=== PATIENT | male | born 1950 | race Caucasian/White ===

== ENCOUNTER 2020-10-28 02:27 | Outpatient (CLI) | payer MEDICARE, MEDICAID, SELFPAY ==
--- NOTE | 2020-10-28 | DI.MRI_ITS ---
Exam(s) MR BRAIN WO/W EXAM: MR BRAIN WO/W CLINICAL HISTORY: NON HOGDKINS LYMPHOMA,C85,99,? 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 Both noninfused and contrast i nfused sequences were performed. IV Contrast injected was 11 cc Dotarem. COMPARISON: There are no prior brain imaging studies available for comparison FINDINGS: CEREBRAL PARENCHYMA: No evidence of intracranial hemorrhage, mass effect nor shift of midline structu re. No extraaxial fluid collections. Ventricles are not enlarged nor shifted. There are 5 adjacent foci of signal abnormality in the inferior aspect of the right cerebellar hemisp here, consistent with prior non recent ischemic sequelae. No other significant cerebellar findings. No ring enhancing lesions in the cerebellum. No abnormal signal evident in the nilesh, midbrain, and thalami. There is mild periventricular signal abnormality. There is also very subtle signal abnorma lity in the splenium the corpus callosum, most evident on diffusion imaging. There is no prominent e nhancement at this level. In addition, there is an area of subcortical signal abnormality in the lef t frontal lobe measuring 2.4 cm AP by 1.2 cm wide the by 1.5 cm craniocaudal. There is no abnormal e nhancement peripheral no ring enhancing in this region and no abnormal signal evident at this locatio n on diffusion imaging. In addition, there is a high left parietal similar signal abnormality adjace nt to the midline, almost similar size, also non hemorrhagic, nonenhancing, and not exhibiting signif icant signal abnormality on diffusion imaging. There are no ring enhancing lesions in the brain. There is no abnormal meningeal enhancement. PITUITARY GLAND: No mass nor parasellar abnormality. No obvious abnormality in the cavernous sinuses. FLOW VOIDS: The expected flow void are noted. No evidence of obvious aneurysm nor obvious vascular ma lformation. PARANASAL SINUSES: The visualized paranasal sinuses appear unremarkable. ORBITS: No obvious abnormal findings. IMPRESSION: 1. There are foci of subcortical signal abnormality in the left frontal and parietal lobes as describ ed above which that are not typical for chronic white matter ischemic changes. There is also mild si gnal abnormality in the splenium of the corpus callosum. None of these areas exhibit abnormal enhanc ement following contrast injection are still somewhat suspect, given the history here. 2. There are no ring enhancing lesions in the brain evidence no abnormal meningeal enhancement, focal nor diffuse. 3. There is a ???string of pearls??? configuration of non recent appearing micro infarcts in the inf erior aspect of the right cerebellar hemisphere. The left cerebellar hemisphere appears unremarkable . DATA REPOSITORY:
[2020-10-28 13:47] LABS: CREATININE 0.8 mg/dL (0.70-1.30)
[2020-10-28] MEDS: Gadoterate meglumine 20 ML VIAL 11 ML IVP (14:02)
[2020-10-28] MEDS: Normal Saline Flush 10 ML SYR IVP (14:02)
[2020-10-28 16:24] LABS: ALT 17 U/L (16-63); AST 18 U/L (15-37); Albumin 3.5 g/dL (3.4-5.0); Alkaline Phosphatase 94 U/L (46-116); Anion Gap 4.6 mmol/L (3-11); BUN 8 mg/dL (7-18); Bilirubin, Total 0.2 mg/dL (0.2-1.0); CO2 32.4 mmol/L (21.0-32.0); Chloride 102 mmol/L (98-107); Glucose 103 mg/dL (74-106); Potassium 4.5 mmol/L (3.5-5.1); Sodium 139 mmol/L (136-145); Total Protein 7.6 g/dL (6.4-8.2)
== END 2020-10-28 02:47 ==
PROVIDERS: Visit Provider Internal Medicine
DX: C85.99 Non-Hodgkin lymphoma, unspecified, extranodal and solid organ sites (principal)
CPT/HCPCS: 70553; 80053; 82565

== ENCOUNTER 2021-01-05 01:08 | Outpatient (CLI) | payer MEDICARE, MEDICAID, SELFPAY ==
[2021-01-05] MEDS: Normal Saline Flush 10 ML SYR IVP (13:59)
[2021-01-05] MEDS: Gadoterate meglumine 20 ML VIAL 11 ML IVP (14:00)
--- NOTE | 2021-01-05 14:30 | DI.MRI_ITS ---
Exam(s) MR BRAIN WO/W EXAM: MR BRAIN WO/W CLINICAL HISTORY: LYMPHOMA,C85.89,F/U ABNL FINDING ON MRI,R90.89,SPLENIUM OF CORPUS CALLOSUM TECHNIQUE: Multiplanar multisequence MRI of the brain was performed. Both noninfused and contrast i nfused sequences were performed. IV Contrast injected was 11 cc Dotarem. COMPARISON: MR MR BRAIN WO/W from 10/28/2020 FINDINGS: CEREBRAL PARENCHYMA: Previously described multiple areas of white matter signal abnormality which exh ibit increased signal on FLAIR imaging are unchanged and again exhibit no evidence of hemorrhage, pro minent surrounding edema, nor enhancement following contrast injection. There are also no new additi onal such findings on today's MRI study. These areas again exhibits no evidence of restricted diffus ion on DWI sequence No new abnormal signal evident in the nilesh, midbrain, and thalami. The previously described string of pearls configuration area of prior ischemic sequelae in the inferi or right cerebellar hemisphere is also unchanged. There are no new ring enhancing lesions in the brain. There is no abnormal meningeal enhancement. PITUITARY GLAND: No mass nor parasellar abnormality. No obvious abnormality in the cavernous sinuses. FLOW VOIDS: The expected flow void are noted. No evidence of obvious aneurysm nor obvious vascular ma lformation. PARANASAL SINUSES: The visualized paranasal sinuses appear unremarkable. ORBITS: No obvious abnormal findings. IMPRESSION: 1. Findings are unchanged from the prior abnormal findings on the MRI scan of 10/28/2020 2. No new ring-enhancing lesions in the brain and no evidence of abnormal meningeal enhancement 3. Also unchanged string of pearls configuration of non recent appearing micro infarcts in the infer ior aspect of the right cerebellar hemisphere. The opposite-left cerebellar hemisphere remains unrem arkable in appearance Essentially no change from the previous MRI study. DATA REPOSITORY:
== END 2021-01-05 01:28 ==
PROVIDERS: Visit Provider Internal Medicine
DX: R90.89 Other abnormal findings on diagnostic imaging of central nervous system (principal); C85.99 Non-Hodgkin lymphoma, unspecified, extranodal and solid organ sites
CPT/HCPCS: 70553

== ENCOUNTER 2021-05-12 01:56 | Outpatient (CLI) | payer MEDICARE, MEDICAID, SELFPAY ==
[2021-05-12 11:51] LABS: ALT 13 U/L (16-63); AST 16 U/L (15-37); Albumin 3.5 g/dL (3.4-5.0); Alkaline Phosphatase 98 U/L (46-116); Anion Gap 2.1 mmol/L (3-11); BUN 6 mg/dL (7-18); Bilirubin, Total 0.2 mg/dL (0.2-1.0); CO2 34.9 mmol/L (21.0-32.0); CREATININE 0.8 mg/dL (0.70-1.30); Calcium 8.7 mg/dL (8.5-10.1); Chloride 97 mmol/L (98-107); Glucose 85 mg/dL (74-106); Potassium 4.2 mmol/L (3.5-5.1); Sodium 134 mmol/L (136-145); Total Protein 7.6 g/dL (6.4-8.2)
[2021-05-12] MEDS: Gadoterate meglumine 20 ML VIAL 10 ML IVP (12:00)
[2021-05-12] MEDS: Normal Saline Flush 10 ML SYR IVP (12:00)
--- NOTE | 2021-05-12 12:15 | DI.MRI_ITS ---
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 CONTRAST MATERIAL: IV Contrast: 10 ML of Dotarem contrast administered. COMPARISON: MR MR BRAIN WO/W from 10/28/2020 MR MR BRAIN WO/W from 01/05/2021 FINDINGS: The examination is limited due to patient motion artifact. VENTRICLES AND EXTRA AXIAL SPACES: Normal in size and morphology for the patient's age. HEMORRHAGE: None. CEREBRAL PARENCHYMA: No findings to suggest an acute infarct. There again seen several areas of hype rintense signal on the FLAIR and T2 weighted images in the white matter. There has been increase in the abnormal signal in the splenium of the corpus callosum particularly on the left. There is also n ew increased signal seen in the left nilesh. Following contrast administration there is now enhancemen t seen in the left splenium of the corpus callosum. No other enhancing lesions are identified. The lucent areas seen in the left cerebellar hemisphere are unchanged. MIDLINE SHIFT: None. BRAINSTEM/CEREBELLUM: Increased signal on the T2 and FLAIR images in the left nilesh. This is new comp ared to the prior examination. CALVARIUM: Normal. ENHANCEMENT: As described above, there is enhancement now seen in the left aspect of the splenium the corpus callosum. VISUALIZED PARANASAL SINUSES/MASTOIDS: Clear. STANDING [place]: Normal flow void. PITUITARY GLAND: Unremarkable. OTHER FINDINGS: IMPRESSION: 1. New hyperintense signal seen in the left nilesh and increased signal seen in the left aspect of the splenium of the corpus callosum. There is now enhancement of the lesion in the corpus callosum. Dif ferential considerations include DISHCLOTH FOLDER lymphoma, glioblastoma, infection or MS. Metastatic disease shou ld also be considered. 2. Stable findings in the left cerebellar hemisphere. DATA REPOSITORY:
== END 2021-05-12 02:16 ==
PROVIDERS: Nurse Practitioner Family; Visit Provider Internal Medicine
DX: C85.99 Non-Hodgkin lymphoma, unspecified, extranodal and solid organ sites (principal); R90.89 Other abnormal findings on diagnostic imaging of central nervous system; C83.30 Diffuse large B-cell lymphoma, unspecified site
CPT/HCPCS: 70553; 80053; 99281

== ENCOUNTER 2021-05-12 16:11 | Emergency (ER) | payer MEDICARE, MEDICAID, SELFPAY ==
[2021-05-12 16:15] VITALS: BP 139/76; PULSE 71; RESP 12; TEMP 36.6; O2SAT 92
--- NOTE | 2021-05-12 16:31 | ED.GENADUL_ITS ---
Discharge Plan Disposition Patient Disposition: HOME Condition: Stable Discharge Details Clinical Impression: Ecchymosis Primary Care Provider: Unknown,Unknown ED Provider: Orville Umaña Home Meds and New Rx's Prescriptions: No Action methadone [Methadone Intensol] 10 mg/mL Concentrate 110 mg PO DAILY 0RF omeprazole magnesium [Prilosec OTC] 20 mg Tablet,Delayed Release (Dr/Ec) 20 mg PO DAILY 0RF Discharge Instructions Instructions: Ecchymosis (ED) Additional Instructions: It appears as though you have some bruising around the IV site. No signs of infection or other rash. Cool and/or warm compresses every 2 hours for 20 mi nutes. Please watch for new or worsening symptoms and return to the ER for any concerns. Medical Decision Making 70-year-old gentleman noticed discoloration to his IV site from an MRI roughly 4-1/2 hours ago after taking the bandage off. He is otherwise asymptomatic. He contacted the MRI department who recommended coming to the ER for evaluation. He has ecchymosis but no petechiae like bruising. I believe this is likely secondary from the IV puncture site, pressure, and dressing. Patient is not anticoagulated. I do not believe that emergent laboratory values are necessary. Patient is comfortable with this plan and has no additional questions or concerns. Standard discharge and return precautions were provided. This documentation was generated using PaeDaeation system, please disregard any oddities of phrase or misspellings. HPI General Mode of arrival: ambulatory . Date/Time Provider Initiated Documentation: 05/12/21 16:23 . Limitations to Documentation: no limitations . Information obtained by: patient . HPI Narrative: This is a 70-year-old gentleman, presenting to the ER for evaluation of right arm bruising. Patient states that he had an outpatient MRI today about 4-1/2 hours ago, had no issues at that time. Subsequently he took the bandage off around the puncture site for the IV and noticed some bruising. He states that he contacted MRI and they recommended coming to the ER. He denies any symptoms from the MRI or the contrast such as rash elsewhere in his body, difficulty alicia thing, wheezing, coughing, chest pain, shortness of breath. Patient states in general he typically bruises easily. He is not anticoagulated. Related Data Home Medications Medication Instructions Recorded Confirmed methadone 10 mg/mL oral 110 mg PO DAILY 05/12/21 05/12/21 concentrate (Methadone Intensol) omeprazole magnesium 20 mg 20 mg PO DAILY 05/12/21 05/12/21 tablet,delayed release (Prilosec OTC) Allergies Allergy/AdvReac Type Severity Reaction Status Date / Time Penicillins Allergy Unverified 05/12/21 16:22 General Stated Complaint: RashLesion ARELY: 5 Review of Systems Constitutional Constitutional: Denies fever(s) Cardiovascular Cardiovascular: Denies chest pain and Denies dyspnea Respiratory Respiratory: Denies dyspnea Integumentary/Breasts Skin/Breast: Denies erythema and Denies rash Hematologic/Lymphatic Hematologic/Lymphatic: Reports easy bleeding and Reports easy bruising PFS All Active Problems (Updated 05/12/21 @ 16:35 by ALLISON Chow) Ecchymosis (Acute) Social History Smoking/Tobacco Use Status: Current every day Tobacco Type: cigarettes Smoking risk assessment performed?: Yes Alcohol Intake: never Drug use: Never Substance use type: does not use Do you feel safe at home: Yes Do you feel safe in your relationship?: Yes Exam Const General: cooperative, healthy appearing, comfortable and no acute distress Orientation: alert and awake [facility] Head: normal to inspection, normocephalic and atraumatic Eyes Conjunctivae: conjunctivae normal Neck Neck: normal visual inspection, trachea midline and supple Resp Effort & Inspection: normal respiratory effort and able to speak in complete sentences Cardio Rate: regular rate Rhythm: regular rhythm Skin General skin exam: ecchymosis Rashes: no rashes Neuro General: patient alert, patient awake, moves all extremities and no focal motor deficits Cognition: normal cognition Speech: speech normal Gait: normal gait Sensory Exam: no sensory deficits noted Extrem General: full ROM and capillary refill normal Elbow/forearm/wrist images: 1. IV puncture site 2. There is an area of macular ecchymosis. There is no erythema, warmth, tenderness. The surrounding tissue is intact. Normal radial pulse and capillary refill Psych Appearance: grossly normal Mental Status: mental status grossly normal Course Vital Signs Vital signs: Vital Signs Temperature 36.6 C 05/12/21 16:15 Pulse 71 05/12/21 16:15 Respiratory Rate 12 05/12/21 16:15 Blood Pressure 139/76 05/12/21 16:15 Pulse Oximetry 92 05/12/21 16:15 Temperature 36.6 C 02/16/22 16:15 Temperature Source Temporal Artery Scan 05/12/21 16:15 Pulse 71 05/12/21 16:15 Respiratory Rate 12 05/12/21 16:15 Respiratory Effort Non-Labored 05/12/21 16:20 Blood Pressure 139/76 05/12/21 16:15 Blood Pressure Position Sitting 05/12/21 16:15 Pulse Oximetry 92 05/12/21 16:15 Oxygen Delivery Method Room Air 05/12/21 16:15 Oxygen Flow Rate 0 05/12/21 16:15 Pain Level 0 05/12/21 16:15
== END 2021-05-12 16:51 | disposition home or self-care (01) ==
PROVIDERS: Emergency Provider Physician Assistant
DX: R23.3 Spontaneous ecchymoses (principal)
CPT/HCPCS: 99281

== ENCOUNTER 2021-07-01 02:08 | Outpatient (CLI) | payer MEDICARE, MEDICAID, SELFPAY | END 2021-07-01 02:09 | disposition home or self-care (01) | LOC: LBO 02:09 | PROVIDERS: Visit Provider Internal Medicine Hematology & Oncology ==

== ENCOUNTER 2021-07-15 02:02 | Outpatient (RCR) | payer MEDICARE, MEDICAID, SELFPAY ==
[2021-07-15 09:32] LABS: Absolute Basophil Count 0.05 10^3/uL (0.0-0.2); Absolute Eosinophil Count 0.25 10^3/uL (0.0-0.7); Absolute Lymphocyte Count 2.14 10^3/uL (1.2-3.4); Basophils % 0.4; Eosinophils % 2.2; HCT 40.6 % (40.0-50.0); HGB 12.1 g/dL (13.5-17.5); Immature Grans % 0.9; Lymphocytes % 18.6; MCH 25.9 pg (27.0-33.0); MCHC 29.8 % (32.0-36.0); MCV 86.8 fL (80-95); MPV 10.6 fL (8.0-11.0); Neutrophils % 66.9; Platelet Count 406 10^3/uL (130-400); RBC 4.68 10^6/uL (4.36-5.78); RDW 18.1 % (11.8-14.1); RDW-SD 57.2 fL
[2021-07-15 09:36] LABS: Absolute Monocyte Count 1.27 10^3/uL (0.1-0.8); Absolute Neutrophil Count 7.69 10^3/uL (1.2-6.7)
[2021-07-15 09:47] LABS: ALT 20 U/L (16-63); AST 20 U/L (15-37); Albumin 3.2 g/dL (3.4-5.0); Alkaline Phosphatase 132 U/L (46-116); Anion Gap 3.5 mmol/L (3-11); BUN 9 mg/dL (7-18); Bilirubin, Total 0.2 mg/dL (0.2-1.0); CO2 34.5 mmol/L (21.0-32.0); CREATININE 0.8 mg/dL (0.70-1.30); Calcium 8.8 mg/dL (8.5-10.1); Chloride 100 mmol/L (98-107); Glucose 104 mg/dL (74-106); Potassium 4.4 mmol/L (3.5-5.1); Sodium 138 mmol/L (136-145); Total Protein 7.6 g/dL (6.4-8.2)
== END 2021-07-24 23:59 | disposition home or self-care (01) ==
LOC: INF 02:02
PROVIDERS: Visit Provider Internal Medicine Hematology & Oncology
DX: C85.89 Other specified types of non-Hodgkin lymphoma, extranodal and solid organ sites (principal)
CPT/HCPCS: 36415; 80053; 85025

== ENCOUNTER 2021-08-02 10:16 | Inpatient (IN) | payer MEDICARE, MEDICAID, SELFPAY ==
[2021-08-02] VITALS (102 sets, daily range): BP systolic 94–137; BP diastolic 41–76; PULSE 83–105; RESP 2–31; TEMP 34–36.8; O2SAT 88–100
--- NOTE | 2021-08-02 10:00 | DI.RAD_ITS ---
Exam(s) XR PORTABLE CHEST AP EXAM: XR PORTABLE CHEST AP CLINICAL HISTORY: trauma, hypoxia TECHNIQUE: 2D digital imaging was performed. COMPARISON: No exams were available for comparison FINDINGS: LUNGS: Severe underlying emphysematous changes. Superimposed right lower lobe infiltrate. No effusi on or pneumothorax. HEART: Normal. AORTA: Normal. BONES: Fractures right lateral 8th through 10th ribs. Eleventh and 12th ribs obscured. Soft tissues: Unremarkable. IMPRESSION: Fractures right 8th through 10th ribs. No pneumothorax. Right lower lobe infiltrate. DATA REPOSITORY: RADIATION DOSE DELIVERED:
--- NOTE | 2021-08-02 10:38 | ED.GENADUL_ITS ---
Discharge Plan Disposition Patient Disposition: [facility] INPATIENT Condition: Serious Discharge Details Clinical Impression: Pneumonia, Multiple rib fractures, Non-ST elevation AK (NSTEMI), Fall Admit Date/Time: 08/02/21 19:42 Admit Provider: Erich Middleton Attending Provider: Erich Middleton Primary Care Provider: Unknown,Unknown ED Provider: Orville Umaña Discharge Data Discharge Date/Time-TO BE ENTERED AT DEPARTURE: 08/02/21 21:11 Medical Decision Making <ALLISON Choudhary - Last Filed: 08/10/21 11:49> Patient is a pleasant 70-year-old gentleman presenting today with chief complaint of shortness of breath. Patient brought in via EMS. EMS reports that when they found patient at home, he was laying flat coming in due to a 68%. They are able to maintain the patient in the low 90s with nonrebreather facemask. Patient reports that he has been having increased shortness of breath since he fell on his deck yesterday. He states at that time he injured his back. Denies other injury at the time of the incident. Did not strike his head, no LOC or SARAVIA. Patient reports that he did vomit x1 this morning. He denies any aspiration. States that he was in an upright position at the time of emesis. Denies any cough. No fevers or chills. 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 He denies any nausea or vomiting associated with his current cancer treatment. Past medical history is pertinent for COPD. No prior CP. On exam, patient appears acutely ill. Clearly short of breath, accessory muscle usage, fragmented sentences. He sounds wet throughout very rhonchorous in all pyle. Patient is slightly tachycardic with heart rate of 104. Blood stable. Patient is on nonrebreather with oxygen maintained in the 90s. Abdomen is benign. No murmurs rubs or gallops appreciated. No lower extremity edema or calf discomfort. He has intact PT on the left which is diminished on the right. However, intact DP on the right which is diminished on the left. Intact capillary refill in all extremities. Patient does appear dry on exam. No evidence of head trauma. No midline tenderness with palpation. No pain with palpation or range of motion of the cervical spine. Neurologically intact moving all of his extremities. Patient does also appear chronically ill, is quite cachectic and malnourished appearing. Bedside chest x-ray was obtained immediately, reviewed by myself as well as Dr. Carlos with no pneumothorax, large effusion. Slight effusion in the right lower lobe. Patient was also evaluated by Dr. Carlos. Bedside fast exam was performed with no evidence of bleeding. Evaluation of the aorta was limited secondary to bowel gas. No acute wall motion abnormality noted on cardiac window, no pericardial effusion. Spoke with the patient's . She reports that his breathing has been declining since patient had chemotherapy last month. 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 Reports that he does have a history of COPD which has been progressively getting worse. States that he quit smoking within the last calendar year. After reports the patient has been suffering from an eating disorder recently. Initial ddx primarily concerned for underlying traumatic injury associated with yesterdays fall. However, given patietn comorbidities, alsoc concerned for potential PE, CHF exacerbation, cncer progression, ACS. Patient tolerating BiPAP well. Is receiving his second DuoNeb and is feeling much improved. Respiratory therapy reports that despite not hearing much wheezing initially, his lungs do seem to be clearing some with the help of BiPAP and nebulizers. VBG significant for pH of 7.27, PCO2 of 68, bicarb of 31. CO2 68%. Contacted by lab for white count 55. Concerned this may be associated with his cancer history, will evaluate see if patient has had Neupogen or other stimulant. EKG reviewed by Dr. Carlos. No ST elevation. Slight ST depression V4, V5. FINDINGS: LUNGS: Severe underlying emphysematous changes.? Superimposed right lower lobe infiltrate.? No effusion or pneumothorax. HEART: Normal. AORTA: Normal. BONES: Fractures right lateral 8th through 10th ribs.? Eleventh and 12th ribs obscured. Soft tissues: Unremarkable. IMPRESSION: Fractures right 8th through 10th ribs.? No pneumothorax.? Right lower lobe infiltrate. Patients troponin elevated at 290. Patient reports that prior to the fall today, he was not having any chest pain. Reports that he has some chronic shortness of breath associated with his COPD but no recent change in this or exertional change. I am primarily concerned at this time for demand ischemia associated with his injury yesterday plus the patient's chronic conditions. With the patient's history of vomiting, concern for potential aspiration pneumonia as source of the right lower lobe infiltrate We will begin the patient on metronidazole and levofloxacin, patient allergic to penicillin. We will also consult with anesthesia regarding rib block. Patient feeling much improved after rib block. He has been weaning off FiO2, is on high flow NC. Patient reports feeling much improved, is much more calm. Patient to repeat troponin continues to elevate at 466. I am concerned with the elevation for potential true ACS and will consult with cardiology at [facility]. This is where patient typically receives his oncology care at [facility]. COVID negative, now at bedside. Patient is now more forethcoming with history as he is much more calm. He now reports hx of AK with stent placement 12 years ago in [place]. CVA affecting RLE 8 years ago, treated in [place], [place]. He previously received treatment at [facility] in [place]. New to the area in the past year. Consulted with Dr. Caceres with cardiology. She recommended to continue trending the troponin, obtain an echocardiogram. Advised that at this time would not bring him to the [facility] at this time. Cardiology called back with milk collector. Trend troponin, echocardiogram. Try to obtain old for comparison. Recommended CT head, she wants to see if there is progression of his brain mets. concerned for ICH if we begin anticoagulation. At the end of my shift, care transitioned to Lg Umaña PA-C. Head CT for reevaluation of known masses prior to beginning anticoagulation is pending. Consultation with oncology pending. Patient currently diagnosed with right lower lobe infiltrate, concern for possible aspiration pneumonia which is being covered with metronidazole and levofloxacin. He has 3 rib fractures which have been blocked by anesthesia. He has an elevated troponin which is initially 290, now up to 466. Consulted with cardiology who was concerned regarding anticoagulation given the patient recent trauma as well as his known brain metastasis and causing potential bleed. Holding off on any formal anticoagulation until imaging has been obtained and oncology team has been consulted. Prior to leaving the department, spoke with Dr. Otto with oncology. She reviewed recent clinic visit notes. She feels the WBC is likely associated with acute stress of the trauma. She advised that his type of cancer does not typcially bleed. She recommended head CT first tonight. If that is non-acute, can move forward with anticoagulation as the risk of bleeding in this setting does not outweigh the risk of not anticoagulating the NSTEMI. I assumed care of this 70-year-old male from my colleague ALLISON Craig at approximately 1600. Please see her initial HPI and examination. At time of signout awaiting CT imaging of head and then need to reconnect with cardiology for recommendations and then likely admission. CT imaging does not reveal any evidence of intracranial abnormality, lesions are present. I spoke with cardiology at [facility], Dr. Stratton at 1800. He believes this is likely not a type I NSTEMI, recommend trending troponin, giving full dose aspirin but does not recommend initiating heparin. Does recommend echocardiogram tomorrow and if the patient was to develop symptoms or decompensate and can certainly treat as a type I NSTEMI at that time -Received a phone call from oncology, Dr. Otto. She wanted to update us, recommend the platelet count is greater than 50, and head CT is unremarkable then could certainly initiate heparin if cardiology recommended that. Head CT is negative and platelet count is above 50 however cardiology does not recommend starting heparin. Case then discussed with our hospitalist team, Dr. Middleton for admission. He pe rsonally evaluated the patient in room 1 and wrote admitting orders. <ALLISON Chow - Last Filed: 08/02/21 20:47> Patient is a pleasant 70-year-old gentleman presenting today with chief complaint of shortness of breath. Patient brought in via EMS. EMS reports that when they found patient at home, he was laying flat coming in due to a 68%. They are able to maintain the patient in the low 90s with nonrebreather facemask. Patient reports that he has been having increased shortness of breath since he fell on his deck yesterday. He states at that time he injured his back. Denies other injury at the time of the incident. Did not strike his head, no LOC or SARAVIA. Patient reports that he did vomit x1 this morning. He denies any aspiration. States that he was in an upright position at the time of emesis. Denies any cough. No fevers or chills. 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 He denies any nausea or vomiting associated with his current cancer treatment. Past medical history is pertinent for COPD. No prior CP. On exam, patient appears acutely ill. Clearly short of breath, accessory muscle usage, fragmented sentences. He sounds wet throughout very rhonchorous in all pyle. Patient is slightly tachycardic with heart rate of 104. Blood stable. Patient is on nonrebreather with oxygen maintained in the 90s. Abdomen is benign. No murmurs rubs or gallops appreciated. No lower extremity edema or calf discomfort. He has intact PT on the left which is diminished on the right. However, intact DP on the right which is diminished on the left. Intact capillary refill in all extremities. Patient does appear dry on exam. No evidence of head trauma. No midline tenderness with palpation. No pain with palpation or range of motion of the cervical spine. Neurologically intact moving all of his extremities. Patient does also appear chronically ill, is quite cachectic and malnourished appearing. Bedside chest x-ray was obtained immediately, reviewed by myself as well as Dr. Carlos with no pneumothorax, large effusion. Slight effusion in the right lower lobe. Patient was also evaluated by Dr. Carlos. Bedside fast exam was performed with no evidence of bleeding. Evaluation of the aorta was limited secondary to bowel gas. No acute wall motion abnormality noted on cardiac window, no pericardial effusion. Spoke with the patient's . She reports that his breathing has been declining since patient had chemotherapy last month. 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 Reports that he does have a history of COPD which has been progressively getting worse. States that he quit smoking within the last calendar year. After reports the patient has been suffering from an eating disorder recently. Patient tolerating BiPAP well. Is receiving his second DuoNeb and is feeling much improved. Respiratory therapy reports that despite not hearing much wheezing initially, his lungs do seem to be clearing some with the help of BiPAP and nebulizers. VBG significant for pH of 7.27, PCO2 of 68, bicarb of 31. CO2 68%. Contacted by lab for white count 55. Concerned this may be associated with his cancer history, will evaluate see if patient has had Neupogen or other stimulant. EKG reviewed by Dr. Carlos. No ST elevation. Slight ST depression V4, V5. FINDINGS: LUNGS: Severe underlying emphysematous changes.? Superimposed right lower lobe infiltrate.? No effusion or pneumothorax. HEART: Normal. AORTA: Normal. BONES: Fractures right lateral 8th through 10th ribs.? Eleventh and 12th ribs obscured. Soft tissues: Unremarkable. IMPRESSION: Fractures right 8th through 10th ribs.? No pneumothorax.? Right lower lobe infiltrate. Patients troponin elevated at 290. Patient reports that prior to the fall today, he was not having any chest pain. Reports that he has some chronic shortness of breath associated with his COPD but no recent change in this or exertional change. I am primarily concerned at this time for demand ischemia associated with his injury yesterday plus the patient's chronic conditions. With the patient's history of vomiting, concern for potential aspiration pneumonia as source of the right lower lobe infiltrate We will begin the patient on metronidazole and levofloxacin, patient allergic to penicillin. We will also consult with anesthesia regarding rib block. Patient feeling much improved after rib block. He has been weaning off FiO2, is on high flow NC. Patient reports feeling much improved, is much more calm. Patient to repeat troponin continues to elevate at 466. I am concerned with the elevation for potential true ACS and will consult with cardiology at [facility]. This is where patient typically receives his oncology care at [facility]. COVID negative, now at bedside. Patient is now more forethcoming with history as he is much more calm. He now reports hx of AK with stent placement 12 years ago in [place]. CVA affecting RLE 8 years ago, treated in [place], [place]. He previously received treatment at [facility] in [place]. New to the area in the past year. Consulted with Dr. Caceres with cardiology. She recommended to continue trending the troponin, obtain an echocardiogram. Advised that at this time would not bring him to the [facility] at this time. Cardiology called back with milk collector. Trend troponin, echocardiogram. Try to obtain old for comparison. Recommended CT head, she wants to see if there is progression of his brain mets. concerned for ICH if we begin anticoagulation. At the end of my shift, care transitioned to Lg Umaña PA-C. Head CT for reevaluation of known masses prior to beginning anticoagulation is pending. Consultation with oncology pending. Patient currently diagnosed with right lower lobe infiltrate, concern for possible aspiration pneumonia which is being covered with metronidazole and levofloxacin. He has 3 rib fractures which have been blocked by anesthesia. He has an elevated troponin which is initially 290, now up to 466. Consulted with cardiology who was concerned regarding anticoagulation given the patient recent trauma as well as his known brain metastasis and causing potential bleed. Holding off on any formal anticoagulation until imaging has been obtained and oncology team has been consulted. Prior to leaving the department, spoke with Dr. Otto with oncology. She reviewed recent clinic visit notes. She feels the WBC is likely associated with acute stress of the trauma. She advised that his type of cancer does not typcially bleed. She recommended head CT first tonight. If that is non-acute, can move forward with anticoagulation as the risk of bleeding in this setting does not outweigh the risk of not anticoagulating the NSTEMI. I assumed care of this 70-year-old male [facility]. Please see her initial HPI and examination. At time of signout awaiting CT imaging of head and then need to reconnect with cardiology for recommendations and then likely admission. CT imaging does not reveal any evidence of intracranial abnormality, lesions are present. I spoke with cardiology at [facility], Dr. Stratton at 1800. He believes this is likely not a type I NSTEMI, recommend trending troponin, giving full dose aspirin but does not recommend initiating heparin. Does recommend echocardiogram tomorrow and if the patient was to develop symptoms or decompensate and can certainly treat as a type I NSTEMI at that time -Received a phone call from oncology, Dr. Otto. She wanted to update us, recommend the platelet count is greater than 50, and head CT is unremarkable t hen could certainly initiate heparin if cardiology recommended that. Head CT is negative and platelet count is above 50 however cardiology does not recommend starting heparin. Case then discussed with our hospitalist team, Dr. Middleton for admission. He personally evaluated the patient in room 1 and wrote admitting orders. Medical Records Medical records reviewed: Yes I reviewed the patient's medical records. Imaging Data Radiologic Study: Attestation: I personally reviewed and interpreted this imaging study as follows: Imaging: CT Scan Radiologist's impression: PROCEDURE INFORMATION: Exam: CT Head Without Contrast Exam date and time: 08/02/2021 5:36 PM Age: 70 years old Clinical indication: Injury or trauma; Fall; Blunt trauma (contusions or hematomas); Consciousness not specified; Injury date: Today; Injury details: Comparison of masses known brain mass. TECHNIQUE: Imaging protocol: Computed tomography of the head without contrast. Radiation optimization: All CT scans at this facility use at least one of these dose optimization techniques: automated exposure control; mA and/or kV adjustment per patient size (includes targeted exams where dose is matched to clinical indication); or iterative reconstruction. COMPARISON: MR BRAIN WO/W 05/12/2021 11:33 AM FINDINGS: Brain: Low-attenuation lesions seen within the left frontal parietal lobe measuring approximately 16 mm in diameter unchanged compared to the MRI performed 05/12/2021. Additional low-attenuation lesions seen within the high left parietal lobe measuring 12.3 mm unchanged compared to the MRI pe rformed 05/12/2021. Low-attenuation lesions seen within the right cerebellum also appears unchanged and measures approximately 4.8 mm. No significant mass effect associated with these lesions . These lesions appear to lie within the white matter. There is moderate diffuse heterogeneity of the white matter attenuation, consistent with chronic white matter microangiopathic ischemic changes. There is moderate diffuse cerebral atrophy present. There is no evidence of intracranial hemorrhage. Cerebral ventricles: The ventricular system demonstrates mild to moderate diffuse compensatory enlargement. Paranasal sinuses: There is no evidence of fluid levels, mucoperiosteal thickening, or opacification to suggest acute or chronic sinusitis. Mastoid air cells: The mastoid aircells are normal.Orbital cavities: There is no evidence of retro- bulbar hemorrhage. There is no evidence of globe or lens injury. Vasculature: Vascular calcifications seen consistent with chronic atherosclerotic cerebrovascular disease. Bones/joints: The orbits are normal without evidence of fracture. The bony cranium shows no evidence of injury or other acute pathologic processes. Soft tissues: The extracranial soft tissues are normal. IMPRESSION: 1. No evidence of an acute intracranial abnormality. No significant change compared to MRI performed 05/12/2021 2. There is moderate age-related atrophy and chronic white matter ischemic changes, with compensatory ventricular dilation. 3. Low-attenuation lesions seen within the left frontal parietal lobe measuring approximately 16 mm in diameter unchanged compared to the MRI performed 05/12/2021. Additional low-attenuation lesions seen within the high left parietal lobe measuring 12.3 mm unchanged compared to the MRI performed 05/12/2021. 4. Low-attenuation lesions seen within the right cerebellum also appears unchanged and measures approximately 4.8 mm. 5. No significant mass effect associated with these lesions . These lesions appear to lie within the white matter. Lab Data Lab results reviewed: Yes I reviewed the patient's lab results. Labs: Laboratory Tests Range/Units 08/02/21 08/02/21 08/02/21 10:45 10:45 10:45 WBC (4.4-10.8) 10^3/uL 55.86 H* RBC (4.36-5.78) 10^6/uL 4.86 Hgb (13.5-17.5) g/dL 12.7 L Hct (40.0-50.0) % 41.7 MCV (80-95) fL 86 MCH (27.0-33.0) pg 26.1 L MCHC (32.0-36.0) % 30.5 L RDW (11.8-14.1) % 17.2 H Plt Count (130-400) 10^3/uL 415 H MPV (8.0-11.0) fL 11.2 H Immature Gran % 0.0 Neutrophils % 92.0 Band Neutrophils % 2 Lymphocytes % 2.0 Monocytes % 4.0 Eosinophils % 0.0 Basophils % 0.0 Nucleated RBC % (0.0-0.3) % 0.0 Absolute Neutrophils (1.2-6.7) 10^3/uL 52.51 H Absolute Lymphocytes (1.2-3.4) 10^3/uL 1.12 L Absolute Monocytes (0.1-0.8) 10^3/uL 2.23 H Absolute Eosinophils (0.0-0.7) 10^3/uL 0.00 Absolute Basophils (0.0-0.2) 10^3/uL 0.00 RBC Morphology Normal PT (9.3-11.0) sec INR (0.9-1.1) APTT (21.0-27.5) sec D-Dimer (<500) ng/mlFEU 3980 H VBG pH (7.31-7.41) VBG pCO2 (41-51) mmHg VBG pO2 mmHg VBG HCO3 (23-28) mmol/L VBG Total CO2 (24-29) mmol/L VBG O2 Saturation % VBG Base Excess (-2-3) mmol/L Sodium (136-145) mmol/L 137 Potassium (3.5-5.1) mmol/L 3.9 Chloride (98-107) mmol/L 98 Carbon Dioxide (21.0-32.0) mmol/L 30.4 Anion Gap (3-11) mmol/L 8.6 BUN (7-18) mg/dL 18 Creatinine (0.70-1.30) mg/dL 1.0 Estimated GFR/1.73 m2 (mL/min/1.73m2) >= 60.00 Glucose (74-106) mg/dL 168 H Calcium (8.5-10.1) mg/dL 9.0 Magnesium (1.8-2.4) mg/dL 2.0 Total Bilirubin (0.2-1.0) mg/dL 0.9 AST (15-37) U/L 23 ALT (16-63) U/L 19 Alkaline Phosphatase (46-116) U/L 87 Lactate Dehydrogenase (85-227) U/L Troponin I (<or=60) ng/L 290 H* NT-Pro-B Natriuret Pep (<300) pg/mL 1294 H Total Protein (6.4-8.2) g/dL 8.1 Albumin (3.4-5.0) g/dL 3.6 COVID-19 Source SARS-CoV-2 (PCR) (Negative) Influenza Type A (PCR) (Negative) Influenza Type B (PCR) (Negative) RSV (PCR) (Negative) Range/Units 08/02/21 08/02/21 08/02/21 10:45 10:45 11:07 WBC (4.4-10.8) 10^3/uL RBC (4.36-5.78) 10^6/uL Hgb (13.5-17.5) g/dL Hct (40.0-50.0) % MCV (80-95) fL MCH (27.0-33.0) pg MCHC (32.0-36.0) % RDW (11.8-14.1) % Plt Count (130-400) 10^3/uL MPV (8.0-11.0) fL Immature Gran % Neutrophils % Band Neutrophils % Lymphocytes % Monocytes % Eosinophils % Basophils % Nucleated RBC % (0.0-0.3) % Absolute Neutrophils (1.2-6.7) 10^3/uL Absolute Lymphocytes (1.2-3.4) 10^3/uL Absolute Monocytes (0.1-0.8) 10^3/uL Absolute Eosinophils (0.0-0.7) 10^3/uL Absolute Basophils (0.0-0.2) 10^3/uL RBC Morphology PT (9.3-11.0) sec 11.0 INR (0.9-1.1) 1.1 APTT (21.0-27.5) sec 25.3 D-Dimer (<500) ng/mlFEU VBG pH (7.31-7.41) 7.27 L VBG pCO2 (41-51) mmHg 68 H* VBG pO2 mmHg 36 VBG HCO3 (23-28) mmol/L 31 H VBG Total CO2 (24-29) mmol/L 29 VBG O2 Saturation % 58 VBG Base Excess (-2-3) mmol/L 4 H Sodium (136-145) mmol/L Potassium (3.5-5.1) mmol/L Chloride (98-107) mmol/L Carbon Dioxide (21.0-32.0) mmol/L Anion Gap (3-11) mmol/L BUN (7-18) mg/dL Creatinine (0.70-1.30) mg/dL Estimated GFR/1.73 m2 (mL/min/1.73m2) Glucose (74-106) mg/dL Calcium (8.5-10.1) mg/dL Magnesium (1.8-2.4) mg/dL Total Bilirubin (0.2-1.0) mg/dL AST (15-37) U/L ALT (16-63) U/L Alkaline Phosphatase (46-116) U/L Lactate Dehydrogenase (85-227) U/L Troponin I (<or=60) ng/L NT-Pro-B Natriuret Pep (<300) pg/mL Total Protein (6.4-8.2) g/dL Albumin (3.4-5.0) g/dL COVID-19 Source Not Applicable SARS-CoV-2 (PCR) (Negative) Negative Influenza Type A (PCR) (Negative) Negative Influenza Type B (PCR) (Negative) Negative RSV (PCR) (Negative) Negative Range/Units 08/02/21 08/02/21 08/02/21 13:30 13:30 18:22 WBC (4.4-10.8) 10^3/uL RBC (4.36-5.78) 10^6/uL Hgb (13.5-17.5) g/dL Hct (40.0-50.0) % MCV (80-95) fL MCH (27.0-33.0) pg MCHC (32.0-36.0) % RDW (11.8-14.1) % Plt Count (130-400) 10^3/uL MPV (8.0-11.0) fL Immature Gran % Neutrophils % Band Neutrophils % Lymphocytes % Monocytes % Eosinophils % Basophils % Nucleated RBC % (0.0-0.3) % Absolute Neutrophils (1.2-6.7) 10^3/uL Absolute Lymphocytes (1.2-3.4) 10^3/uL Absolute Monocytes (0.1-0.8) 10^3/uL Absolute Eosinophils (0.0-0.7) 10^3/uL Absolute Basophils (0.0-0.2) 10^3/uL RBC Morphology PT (9.3-11.0) sec INR (0.9-1.1) APTT (21.0-27.5) sec D-Dimer (<500) ng/mlFEU VBG pH (7.31-7.41) VBG pCO2 (41-51) mmHg VBG pO2 mmHg VBG HCO3 (23-28) mmol/L VBG Total CO2 (24-29) mmol/L VBG O2 Saturation % VBG Base Excess (-2-3) mmol/L Sodium (136-145) mmol/L Potassium (3.5-5.1) mmol/L Chloride (98-107) mmol/L Carbon Dioxide (21.0-32.0) mmol/L Anion Gap (3-11) mmol/L BUN (7-18) mg/dL Creatinine (0.70-1.30) mg/dL Estimated GFR/1.73 m2 (mL/min/1.73m2) Glucose (74-106) mg/dL Calcium (8.5-10.1) mg/dL Magnesium (1.8-2.4) mg/dL Total Bilirubin (0.2-1.0) mg/dL AST (15-37) U/L ALT (16-63) U/L Alkaline Phosphatase (46-116) U/L Lactate Dehydrogenase (85-227) U/L 167 Troponin I (<or=60) ng/L 466 H* 683 H* NT-Pro-B Natriuret Pep (<300) pg/mL Total Protein (6.4-8.2) g/dL Albumin (3.4-5.0) g/dL COVID-19 Source SARS-CoV-2 (PCR) (Negative) Influenza Type A (PCR) (Negative) Influenza Type B (PCR) (Negative) RSV (PCR) (Negative) Range/Units 08/02/21 08/02/21 20:37 22:44 WBC (4.4-10.8) 10^3/uL RBC (4.36-5.78) 10^6/uL Hgb (13.5-17.5) g/dL Hct (40.0-50.0) % MCV (80-95) fL MCH (27.0-33.0) pg MCHC (32.0-36.0) % RDW (11.8-14.1) % Plt Count (130-400) 10^3/uL MPV (8.0-11.0) fL Immature Gran % Neutrophils % Band Neutrophils % Lymphocytes % Monocytes % Eosinophils % Basophils % Nucleated RBC % (0.0-0.3) % Absolute Neutrophils (1.2-6.7) 10^3/uL Absolute Lymphocytes (1.2-3.4) 10^3/uL Absolute Monocytes (0.1-0.8) 10^3/uL Absolute Eosinophils (0.0-0.7) 10^3/uL Absolute Basophils (0.0-0.2) 10^3/uL RBC Morphology PT (9.3-11.0) sec INR (0.9-1.1) APTT (21.0-27.5) sec D-Dimer (<500) ng/mlFEU VBG pH (7.31-7.41) VBG pCO2 (41-51) mmHg VBG pO2 mmHg VBG HCO3 (23-28) mmol/L VBG Total CO2 (24-29) mmol/L VBG O2 Saturation % VBG Base Excess (-2-3) mmol/L Sodium (136-145) mmol/L Potassium (3.5-5.1) mmol/L Chloride (98-107) mmol/L Carbon Dioxide (21.0-32.0) mmol/L Anion Gap (3-11) mmol/L BUN (7-18) mg/dL Creatinine (0.70-1.30) mg/dL Estimated GFR/1.73 m2 (mL/min/1.73m2) Glucose (74-106) mg/dL Calcium (8.5-10.1) mg/dL Magnesium (1.8-2.4) mg/dL Total Bilirubin (0.2-1.0) mg/dL AST (15-37) U/L ALT (16-63) U/L Alkaline Phosphatase (46-116) U/L Lactate Dehydrogenase (85-227) U/L Troponin I (<or=60) ng/L Cancelled Cancelled NT-Pro-B Natriuret Pep (<300) pg/mL Total Protein (6.4-8.2) g/dL Albumin (3.4-5.0) g/dL COVID-19 Source SARS-CoV-2 (PCR) (Negative) Influenza Type A (PCR) (Negative) Influenza Type B (PCR) (Negative) RSV (PCR) (Negative) HPI <ALLISON Choudhary - Last Filed: 08/10/21 11:49> General Date/Time Provider Initiated Documentation: 08/02/21 10:35 . Limitations to Documentation: no limitations . Information obtained by: patient, family, EMS, RN notes reviewed and old records reviewed . History of Present Illness 70 year old M presents to the emergency department with the chief complaint of shortness of breath, described as severe, Quality is described as other (SOB, right sided chest pain after fall yesterday), Related Data Home Medications Medication Instructions Recorded Confirmed methadone 10 mg/mL oral 119 mg PO DAILY 05/12/21 08/07/21 concentrate (Methadone Intensol) omeprazole magnesium 20 mg 20 mg PO DAILY 05/12/21 08/02/21 tablet,delayed release (Prilosec OTC) albuterol sulfate 1.25 mg/3 mL 1.25 mg DAILY 08/02/21 08/02/21 solution for nebulization aspirin 81 mg tablet,delayed 81 mg DAILY 08/02/21 08/02/21 release fluticasone fur. 100 mcg-umeclid 1 inh inhalation DAILY 08/02/21 08/02/21 62.5 mcg-vilant 25 mcg inhalat.powder (Trelegy Ellipta) ipratropium bromide 0.02 % 3 ml DAILY 08/02/21 08/02/21 solution for inhalation nitroglycerin 0.3 mg sublingual 0.3 mg sublingual PRN PRN 08/02/21 08/02/21 tablet acetaminophen 500 mg tablet 1,000 mg PO TID #90 tabs 08/07/21 clindamycin HCl 150 mg capsule 450 mg PO TID #3 caps 08/07/21 gabapentin 100 mg capsule 300 mg PO TID #30 caps 08/07/21 lidocaine 5 % topical patch 1 patch topical DAILY #30 ea 08/07/21 oxycodone 5 mg tablet 5 mg PO Q4H PRN PRN #20 tabs 08/07/21 prednisone 20 mg tablet 40 mg PO DAILY #6 tabs 08/07/21 Previous Rx's Medication Instructions Recorded acetaminophen 500 mg tablet 1,000 mg PO TID #90 tabs 08/07/21 clindamycin HCl 150 mg capsule 450 mg PO TID #3 caps 08/07/21 gabapentin 100 mg capsule 300 mg PO TID #30 caps 08/07/21 lidocaine 5 % topical patch 1 patch topical DAILY #30 ea 08/07/21 oxycodone 5 mg tablet 5 mg PO Q4H PRN PRN #20 tabs 08/07/21 prednisone 20 mg tablet 40 mg PO DAILY #6 tabs 08/07/21 Allergies Allergy/AdvReac Type Severity Reaction Status Date / Time gadoterate meglumine Allergy Mild Skin Rash Verified 08/02/21 11:17 [From [facility]] Penicillins Allergy Unverified 08/02/21 11:17 General ARELY: 1 Review of Systems <ALLISON Choudhary - Last Filed: 08/10/21 11:49> Constitutional Constitutional: Reports as per HPI, Denies chills, Denies fever(s), Denies headache(s), Reports lethargy and Reports poor appetite (hx of eatting disorder, known cancer dx) Eyes Eyes: Denies change in vision ENT Ears, Nose, Mouth, and Throat: Denies dizziness and Denies headache(s) Cardiovascular Cardiovascular: Reports as per HPI, Reports chest pain (right sided, where he struck when he fell last night, none prior), Denies syncope, Denies leg edema, Reports dyspnea, Reports dyspnea on exertion and Reports orthopnea Respiratory Respiratory: Reports as per HPI, Reports cough, Denies hemoptysis, Reports pain on inspiration, Reports pain with cough, Reports dyspnea, Reports dyspnea on exertion and Denies wheezing Gastrointestinal Gastrointestinal: Reports as per HPI, Denies abdominal pain, Denies diarrhea, Reports nausea and Reports vomiting (x1 last night) Genitourinary Genitourinary: Denies system reviewed and no additional complaints, except as documented (denies change in urinary habits) Musculoskeletal Musculoskeletal: Reports as per HPI and Denies back pain Integumentary/Breasts Skin/Breast: Reports as per HPI and Denies rash Neurologic Neurologic: Reports as per HPI, Denies dizziness, Denies syncope and Denies headache(s) Allergic/Immunologic Allergic/Immunologic: Denies wheezing PFSH <ALLISON Choudhary - Last Filed: 08/10/21 11:49> All Active Problems (Updated 08/08/21 @ 00:03 by CARLOS NEWMAN) Brain metastases (Acute) COPD with respiratory distress, acute (Acute) Dysphagia (Acute) Palliative care patient (Acute) DNR (do not resuscitate) (Acute) Multiple rib fractures (Acute) Medical History Ocular lymphoma Social History Smoking/Tobacco Use Status: Current every day Tobacco Type: cigarettes Smoking risk assessment performed?: Yes Alcohol Intake: never Drug use: Never Substance use type: does not use Do you feel safe at home: Yes Do you feel safe in your relationship?: Yes Exam <ALLISON Choudhary - Last Filed: 08/10/21 11:49> Const General: cooperative, acute distress, in distress moderate and respiratory, anxious and frail appearing Nutritional Appearance: cachectic Orientation: alert, awake and oriented x3 HENMT Head: normal to inspection, no palpable skull fracture, normocephalic and atraumatic Ears: hearing grossly normal bilaterally Mouth: moist mucous membranes Eyes General: appearance normal, both eyes and all related structures Neck Neck: normal visual inspection, full ROM, trachea midline and no tracheal deviation Chest Chest: normal inspection of the chest, normal palpation of entire chest wall, no crepitus, localized rib tenderness with anteroposterior compression (right lateral chest wall) and no masses Resp Effort & Inspection: no audible wheezes, no cough, labored, nasal flaring, respiratory distress, retractions, tachypneic, no tracheal deviation, tripod positioning, uses accessory muscles and other (sounds audibly wet with inspiration) Auscultation: diminished lung sounds on the right, rhonchi and no wheezes Cardio Rate: tachycardic Rhythm: regular rhythm Heart Sounds: S1 normal and S2 normal GI Inspection: normal to inspection, no edema and non-distended Palpation: soft, no hepatosplenomegaly, not firm, no guarding, not rigid and nontender Auscultation: normal bowel sounds Back/Spine/Pelvis Back: no CVA tenderness Cervical Spine: normal cervical lordosis, No cervical spinal tenderness and No step off deformity Thoracic/Lumbar Spine: thoracic and lumbar spine normal to inspection, No thoracic spinal tenderness and No lumbar spinal tenderness Pelvis: no pain with anterior-posterior compression and no pain with lateral compression Skin General skin exam: no rashes or lesions noted Trauma: no lacerations or abrasions Neuro General: patient alert, patient awake and patient oriented x3 Cognition: normal cognition Speech: speech normal Gait: normal gait Extrem General: normal to inspection, capillary refill normal, no pedal edema, no calf tenderness and other (bilateral distal pulses, see MDM) Psych Appearance: grossly normal and well kempt Mental Status: mental status grossly normal Speech and Movement: speech and movement normal Sign Out <ALLISON Choudhary - Last Filed: 08/10/21 11:49> Sign Out Data: Sign Out Comment: Care transitioned to Orville Umaña PA-C, with imaging of head and consultation with oncology pending. Patient has NSTEMI, 3 rib fx, RLL infiltrate, known lymphoma. Last updated by Paula Craig PA at 08/02/21 17:12
--- NOTE | 2021-08-02 10:45 | DI.CT_ITS ---
Exam(s) CT CHEST PE ABD PELVIS W EXAM: CT CHEST PE ABD PELVIS W CLINICAL HISTORY: SOB, trauma, known lymphoma. TECHNIQUE: Imaging Protocol: Axial CT angiography was performed with multi-slice acquisition and mu lti-planar and/or 3D reconstructions. CONTRAST MATERIAL: Intravenous: Omnipaque 350 Contrast volume:100 ml COMPARISON: CR XR PORTABLE CHEST AP from 08/02/2021 FINDINGS: CHEST: Pulmonary Arteries: No evidence of filling defect to suggest pulmonary emboli. Tracheobronchial tree: Patent where visualized. Mediastinum and Jocelyn: Minimally prominent right hilar and subcarinal lymph nodes. Pulmonary parenchyma: Severe emphysematous changes greatest at the upper lobes. Dense area of consol idation in the right lower lobe. Mild patchy infiltrate at the left lung base. Bilateral pulmonary nodules, the largest in the right upper lobe measuring 2.2 by 3.2 cm. Pleura: No effusion or pneumothorax. Heart: The heart is not dilated. No coronary artery calcifications are seen. Aorta: Thoracic aorta non-dilated. Bones: Nondisplaced fractures lateral right 6th and 7th ribs. Displaced fractures of the right 8th a nd 9th ribs. ABDOMEN: Liver: Normal density. No measurable mass. Portal, Superior Mesenteric, and Splenic Veins: Unremarkable. Gallbladder and Biliary Tract: No radiodense calculus or dilation. Pancreas: Atrophic, no abnormal calcifications or inflammatory process. Spleen: Normal. Adrenals: No masses seen. Kidneys: Normal size, contour and axis. No radiodense stones or obstructive uropathy. No masses seen. Abdominal Aorta: Abdominal portion non-dilated. Atherosclerotic changes. Bowel: Large quantity of stool throughout the colon. No obstruction or bowel wall thickening. Append ix is unremarkable. Peritoneal Cavity: No ascites, collection or mesenteric inflammatory response. Lymph Nodes: Within normal limits. Bones: Unremarkable. Soft Tissues: Unremarkable. PELVIS: Bladder: Symmetric distention, no gross wall thickening. Reproductive Organs: Bilateral hydroceles, small. Prostate not enlarged. Lymph Nodes: Within normal limits. Bones: No fracture. IMPRESSION: 1. Right lower lobe pneumonia. Severe emphysematous changes. Bilateral pulmonary nodules. No evide nce of pulmonary embolism. 2. Right lateral rib fractures. No pneumothorax. No spine fractures. 3. Large quantity of fecal material. No acute abdominal or pelvic process. 4. Results of this exam have been verbally communicated with emergency department provider. RADIATION DOSE DELIVERED: 755.11mGy.cm Total DLP DATA REPOSITORY: All CT scans at this facility are submitted to the National Radiology Data Registry (NRDR) Dose Index Registry (DIR) with the [employer] ([employer]). RADIATION OPTIMIZATION: All CT scans at this facility use at least one of these dose optimization te chniques: automated exposure control; mA and/or kV adjustment per patient size (includes targeted exa ms where dose is matched to clinical indication); or iterative reconstruction.
[2021-08-02] MEDS: Albuterol/Ipratropium 3 ML UPD VIAL (10:49)
[2021-08-02 10:52] LABS: BE (Venous) 4 mmol/L (-2-3); HCO3 (Venous) 31 mmol/L (23-28); HCT 41.7 % (40.0-50.0); HGB 12.7 g/dL (13.5-17.5); MCH 26.1 pg (27.0-33.0); MCHC 30.5 % (32.0-36.0); MCV 86 fL (80-95); MPV 11.2 fL (8.0-11.0); O2 Sat (Venous) 58 %; Platelet Count 415 10^3/uL (130-400); RBC 4.86 10^6/uL (4.36-5.78); RDW 17.2 % (11.8-14.1); RDW-SD 53.8 fL; TCO2 (Venous) 29 mmol/L (24-29); pH (Venous) 7.27 (7.31-7.41); pO2 (Venous) 36 mmHg
[2021-08-02 10:57] LABS: pCO2 (Venous) 68 mmHg (41-51)
[2021-08-02] MEDS: Albuterol/Ipratropium 3 ML UPD VIAL UPD ×2 (10:57→22:16)
[2021-08-02 11:08] LABS: INR 1.1 (0.9-1.1); PTT Activated 25.3 sec (21.0-27.5)
[2021-08-02 11:10] LABS: Absolute Lymphocyte Count 1.12 10^3/uL (1.2-3.4); Absolute Monocyte Count 2.23 10^3/uL (0.1-0.8); Absolute Neutrophil Count 52.51 10^3/uL (1.2-6.7); Bands % 2; WBC 55.86 10^3/uL (4.4-10.8)
[2021-08-02 11:11] LABS: Diff Comment Manual Differential; RBC Morphology Normal
[2021-08-02 11:13] LABS: ALT 19 U/L (16-63); AST 23 U/L (15-37); Albumin 3.6 g/dL (3.4-5.0); Alkaline Phosphatase 87 U/L (46-116); Anion Gap 8.6 mmol/L (3-11); BUN 18 mg/dL (7-18); Bilirubin, Total 0.9 mg/dL (0.2-1.0); CO2 30.4 mmol/L (21.0-32.0); Chloride 98 mmol/L (98-107); Glucose 168 mg/dL (74-106); NT-proBNP 1294 pg/mL (<300); Potassium 3.9 mmol/L (3.5-5.1); Sodium 137 mmol/L (136-145); Total Protein 8.1 g/dL (6.4-8.2)
[2021-08-02 11:15] LABS: Troponin I 290 ng/L (<or=60)
--- NOTE | 2021-08-02 11:15 | RT.EKG_ITS ---
APPROVED REPORT Exam: Resting ECG Reason for Exam: SOB Patient Location: E HR:100 bpm ECG Measurements Heart Rate 100 AXIS WY 184 P 87 QRSd 96 QRS -57 QT 361 T 89 QTc 466 Conclusion Sinus tachycardia...rate> 99 Right atrial enlargement...P>0.25mV 2 lds or<-0.24mV aVR/aVL Left anterior fascicular block...axis(240,-40), init forces inf Anterior infarct, old...Q >40mS, abnormal ST-T, V2-V5 no STEMI, non-diagnostic EKG I have reviewed and interpreted ECG and agree with software generated interpretation.
[2021-08-02 11:30] LABS: D-Dimer 3980 ng/mlFEU (<500)
[2021-08-02] MEDS: fentaNYL 100 MCG/2 ML VIAL IVP ×3 (11:47→23:46)
[2021-08-02] MEDS: levoFLOXacin 750 MG/150 ML BAG 100 MG IVPB (12:01)
[2021-08-02] MEDS: metroNIDAZOLE 500 MG/100 ML BAG 100 MG IVPB ×2 (12:01→23:46)
[2021-08-02 12:06] LABS: COVID-19 PCR Negative (Negative); Influenza A PCR Negative (Negative); Influenza B PCR Negative (Negative); RSV PCR Negative (Negative)
[2021-08-02] MEDS: Omnipaque 350 MG/ML 50 ML BTL 100 ML IV (12:34)
--- NOTE | 2021-08-02 14:00 | RT.EKG_ITS ---
APPROVED REPORT Exam: Resting ECG Reason for Exam: elevated trop Patient Location: E HR:96 bpm ECG Measurements Heart Rate 96 AXIS WY 182 P 80 QRSd 102 QRS -54 QT 391 T 84 QTc 495 Conclusion Sinus rhythm...normal P axis, V-rate 60- 99 Left anterior fascicular block...axis(240,-40), init forces inf Anterior infarct, old...Q >40mS, abnormal ST-T, V2-V5 no STEMI, non-diagnostic EKG I have reviewed and interpreted ECG and agree with software generated interpretation.
[2021-08-02 14:02] LABS: Troponin I 466 ng/L (<or=60)
--- NOTE | 2021-08-02 14:16 | W.ANESNERVE ---
Nerve Block Single Injection Procedure Date and Time Date Performed: 08/02/21 Procedure Start: 14:10 Location Where Procedure Performed Procedure Location: Emergency Department Reason Performed: Acute Pain Management Pain Diagnosis: Rib Pain Requesting Provider: Paula Craig Timeout Performed Timeout Performed: Yes Monitoring Used ECG, Blood Pressure and SpO2 Sterility Sterility: Hand Hygiene, Surgical Cap, Surgical Mask, Sterile Gloves and Chlorhexidine Sedation Given During Procedure Sedation Given (Indicate Dose Given): No Sedation given Patient Mental Status Patient Mental Status: Awake Nerve Block 1st Nerve Block: Laterality: Right Block Type: Erector Spinae (Lower) Needle / Catheter Used: 100mm SonoPlex II Local Anesthetic Bolus (Indicate Dose Given): Lidocaine used for local infiltration of skin, Injected in 3-5ml increments after negative blood aspiration, Bupivacaine 0.25% Dose:: 20ml and Exparel Dose:: 10 ml Additives (Indicate Dose Given): None Ultrasound: Sterile probe cover and gel used Ultrasound Image Saved?: Yes Nerve Stimulator: Not Used Paresthesia: None Post Procedure Pain score (0-10): 1 Procedure Tolerated: No Complications and Patient tolerated well Procedure Outcome: Successful Performed By: Gil Landeros
[2021-08-02] MEDS: Omeprazole 20 MG CAPCR PO (14:35)
[2021-08-02] MEDS: Omeprazole 20 MG CAPCR (14:38)
--- NOTE | 2021-08-02 16:30 | DI.CT_ITS ---
Exam(s) CT HEAD WO EXAM: CT HEAD WO CLINICAL HISTORY: fall, comparison of masses. TECHNIQUE: Imaging Protocol: Axial computed tomography images with coronal and sagittal reformatted images were created and reviewed COMPARISON: MR MR BRAIN WO/W from 05/12/2021 CR XR PORTABLE CHEST AP from 08/02/2021 FINDINGS: Noninfused study. There are no skull fractures nor fluid in the visualized paranasal sinuses. There is no evidence of intracranial hemorrhage, intra or extra-axial. Ventricles are not enlarged o r shifted and there is no blood within the ventricular system nor within the basal cisterns. When compared to the April 2021 MRI the chronic findings in the right cerebellar hemisphere are un changed. Left frontal lobe findings appear relatively stable. Also stable appearance of findings in the left parietal lobe supra ventricular level. IMPRESSION: No acute intracranial findings on this noninfused CT scan of the brain. No evidence of intracranial hemorrhage (trauma history). Other known findings as seen on recent MRI are stable. RADIATION DOSE DELIVERED: 568 mGy.cm Total DLP DATA REPOSITORY: All CT scans at this facility are submitted to the National Radiology Data Registry (NRDR) Dose Index Registry (DIR) with the [employer] (ACR). RADIATION OPTIMIZATION: All CT scans at this facility use at least one of these dose optimization te chniques: automated exposure control; mA and/or kV adjustment per patient size (includes targeted exa ms where dose is matched to clinical indication); or iterative reconstruction.
[2021-08-02] MEDS: Ondansetron 4 MG/2 ML VIAL (17:32)
[2021-08-02 18:01] LABS: LDH 167 U/L (85-227)
[2021-08-02] MEDS: Aspirin 81 MG CHEW 324 MG CH (18:42)
[2021-08-02 18:49] LABS: Troponin I 683 ng/L (<or=60)
--- NOTE | 2021-08-02 18:58 | DI.VRAD_ITS ---
PROCEDURE INFORMATION: Exam: CT Head Without Contrast Exam date and time: 08/02/2021 5:36 PM Age: 70 years old Clinical indication: Injury or trauma; Fall; Blunt trauma (contusions or hematomas); Consciousness not specified; Injury date: Today; Injury details: Comparison of masses known brain mass. TECHNIQUE: Imaging protocol: Computed tomography of the head without contrast. Radiation optimization: All CT scans at this facility use at least one of these dose optimization techniques: automated exposure control; mA and/or kV adjustment per patient size (includes targeted exams where dose is matched to clinical indication); or iterative reconstruction. COMPARISON: MR BRAIN WO/W 05/12/2021 11:33 AM FINDINGS: Brain: Low-attenuation lesions seen within the left frontal parietal lobe measuring approximately 16 mm in diameter unchanged compared to the MRI performed 05/12/2021. Additional low-attenuation lesions seen within the high left parietal lobe measuring 12.3 mm unchanged compared to the MRI performed 05/12/2021. Low-attenuation lesions seen within the right cerebellum also appears unchanged and measures approximately 4.8 mm. No significant mass effect associated with these lesions . These lesions appear to lie within the white matter. There is moderate diffuse heterogeneity of the white matter attenuation, consistent with chronic white matter microangiopathic ischemic changes. There is moderate diffuse cerebral atrophy present. There is no evidence of intracranial hemorrhage. Cerebral ventricles: The ventricular system demonstrates mild to moderate diffuse compensatory enlargement. Paranasal sinuses: There is no evidence of fluid levels, mucoperiosteal thickening, or opacification to suggest acute or chronic sinusitis. Mastoid air cells: The mastoid aircells are normal. Orbital cavities: There is no evidence of retro-bulbar hemorrhage. There is no evidence of globe or lens injury. Vasculature: Vascular calcifications seen consistent with chronic atherosclerotic cerebrovascular disease. Bones/joints: The orbits are normal without evidence of fracture. The bony cranium shows no evidence of injury or other acute pathologic processes. Soft tissues: The extracranial soft tissues are normal. IMPRESSION: 1. No evidence of an acute intracranial abnormality. No significant change compared to MRI performed 05/12/2021 2. There is moderate age-related atrophy and chronic white matter ischemic changes, with compensatory ventricular dilation. 3. Low-attenuation lesions seen within the left frontal parietal lobe measuring approximately 16 mm in diameter unchanged compared to the MRI performed 05/12/2021. Additional low-attenuation lesions seen within the high left parietal lobe measuring 12.3 mm unchanged compared to the MRI performed 05/12/2021. 4. Low-attenuation lesions seen within the right cerebellum also appears unchanged and measures approximately 4.8 mm. 5. No significant mass effect associated with these lesions . These lesions appear to lie within the white matter. . Dictated and Authenticated by: Boyd Gutiérrez MD. Ordering:SRINIVAS Mitchell MD
--- NOTE | 2021-08-02 19:19 | HPE_ITS ---
Date of service: 08/02/21 Time of Service: 19:19 Assessment and Plan Assessment and plan (1) Pneumonia: Status: Acute Assessment and plan: Pneumonia, likely aspiration, with multifactorial hypoventilation due to pneumonia, rib fractures and underlying COPD. A reasonable antibiotic regimen, and simpler, might be Unasyn. For COPD will continue duonebs, and for the rib fractures prn analgesics. Will also use IS. The profound leukocytosis is most likely a leukemoid reaction, will trend out. The modest elevation in troponins is almost certainly from demand ischemia due to the periods of hypoxia. No suggestion here of ACS and no further treatment will be undertaken. Will recheck trop in AM. History of dysphagia is apparent, might benefit from swallowing study or ST consult Reviewed ADs, requests DNR/DNI. 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 Reports 1-=2 weeks of dry cough and worsening SOB, nofever or chills. One day MILL TENDER WASHING had mechanical fall landing on right side; no head injury or LOC. EMS summoned and report is of sats 68%, up to 90% on NRB mask. Here in ER findings of note for diffuse rhonchi, tenderness right chest; white count 55K wi th left shift; CXR RLL infiltrate; CT chest neg PE, with multifocal patchy pneumonitis; CT head negative save for known and stable brain lesions; trop 290/466/683; no acute changes EKG. VGB pH 7.27/ pCO2 68. Patient given Levaquin and Flagyl; ASA 325; duoneb x2; fentanyl and had rib block by anaesthesiology. States he feels better at present. I was asked to evaluate for admission. Patient notes he has been having poor appetite for some time. Also notes that he occasionally has dysphagia to solids and will cough when eating. Review of Systems Narrative: per HPI PFSH All Active Problems (Updated 08/02/21 @ 19:33 by Erich Middleton MD) Pneumonia (Acute) Social History Smoking/Tobacco Use Status: Current every day Tobacco Type: cigarettes Smoking risk assessment performed?: Yes Alcohol Intake: never Drug use: Never Substance use type: does not use Do you feel safe at home: Yes Do you feel safe in your relationship?: Yes Meds Allergies and Home Medications Allergies Allergy/AdvReac Type Severity Reaction Status Date / Time gadoterate meglumine Allergy Mild Skin Rash Verified 08/02/21 11:17 [From Dotarem] Penicillins Allergy Unverified 08/02/21 11:17 Home Medications Medication Instructions Recorded Confirmed Type methadone 10 mg/mL oral 110 mg PO DAILY 05/12/21 08/02/21 History concentrate (Methadone Intensol) omeprazole magnesium 20 mg 20 mg PO DAILY 05/12/21 08/02/21 History tablet,delayed release (Prilosec OTC) albuterol sulfate 1.25 mg/3 mL 1.25 mg DAILY 08/02/21 08/02/21 History solution for nebulization aspirin 81 mg tablet,delayed 81 mg DAILY 08/02/21 08/02/21 History release fluticasone fur. 100 mcg-umeclid 1 inh INHALATION DAILY 08/02/21 08/02/21 History 62.5 mcg-vilant 25 mcg inhalat.powder (Trelegy Ellipta) ipratropium bromide 0.02 % 3 ml DAILY 08/02/21 08/02/21 History solution for inhalation nitroglycerin 0.3 mg sublingual 0.3 mg SUBLINGUAL PRN PRN 08/02/21 08/02/21 History tablet Exam Narrative Exam Narrative: Cachectic. 110/53, 87, 36.8, 15, 88% hiflow NC (mouth breather, declines mask). HEENT atraumatic; neck supple; lungs coarse BS and diminished; heart distant but RRR; tender right lateral chest; abdomen soft and NT; extremities w/o edema; neuro Ox3, lucid, moves all 4s Results Labs Result diagrams: 08/02/21 10:45 08/02/21 10:45 Labs: Laboratory Results - last 24 hr 08/02/21 08/02/21 08/02/21 10:45 10:45 10:45 WBC 55.86 H* RBC 4.86 Hgb 12.7 L Hct 41.7 MCV 86 MCH 26.1 L MCHC 30.5 L RDW 17.2 H Plt Count 415 H MPV 11.2 H Immature Gran % 0.0 Neutrophils % 92.0 Band Neutrophils % 2 Lymphocytes % 2.0 Monocytes % 4.0 Eosinophils % 0.0 Basophils % 0.0 Nucleated RBC % 0.0 Absolute Neutrophils 52.51 H Absolute Lymphocytes 1.12 L Absolute Monocytes 2.23 H Absolute Eosinophils 0.00 Absolute Basophils 0.00 RBC Morphology Normal PT INR APTT D-Dimer 3980 H VBG pH VBG pCO2 VBG pO2 VBG HCO3 VBG Total CO2 VBG O2 Saturation VBG Base Excess Sodium 137 Potassium 3.9 Chloride 98 Carbon Dioxide 30.4 Anion Gap 8.6 BUN 18 Creatinine 1.0 Estimated GFR/1.73 m2 >= 60.00 Glucose 168 H Calcium 9.0 Magnesium 2.0 Total Bilirubin 0.9 AST 23 ALT 19 Alkaline Phosphatase 87 Lactate Dehydrogenase Troponin I 290 H* NT-Pro-B Natriuret Pep 1294 H Total Protein 8.1 Albumin 3.6 COVID-19 Source SARS-CoV-2 (PCR) Influenza Type A (PCR) Influenza Type B (PCR) RSV (PCR) 08/02/21 08/02/21 08/02/21 10:45 10:45 11:07 WBC RBC Hgb Hct MCV MCH MCHC RDW Plt Count MPV Immature Gran % Neutrophils % Band Neutrophils % Lymphocytes % Monocytes % Eosinophils % Basophils % Nucleated RBC % Absolute Neutrophils Absolute Lymphocytes Absolute Monocytes Absolute Eosinophils Absolute Basophils RBC Morphology PT 11.0 INR 1.1 APTT 25.3 D-Dimer VBG pH 7.27 L VBG pCO2 68 H* VBG pO2 36 VBG HCO3 31 H VBG Total CO2 29 VBG O2 Saturation 58 VBG Base Excess 4 H Sodium Potassium Chloride Carbon Dioxide Anion Gap BUN Creatinine Estimated GFR/1.73 m2 Glucose Calcium Magnesium Total Bilirubin AST ALT Alkaline Phosphatase Lactate Dehydrogenase Troponin I NT-Pro-B Natriuret Pep Total Protein Albumin COVID-19 Source Not Applicable SARS-CoV-2 (PCR) Negative Influenza Type A (PCR) Negative Influenza Type B (PCR) Negative RSV (PCR) Negative 08/02/21 08/02/21 08/02/21 13:30 13:30 18:22 WBC RBC Hgb Hct MCV MCH MCHC RDW Plt Count MPV Immature Gran % Neutrophils % Band Neutrophils % Lymphocytes % Monocytes % Eosinophils % Basophils % Nucleated RBC % Absolute Neutrophils Absolute Lymphocytes Absolute Monocytes Absolute Eosinophils Absolute Basophils RBC Morphology PT INR APTT D-Dimer VBG pH VBG pCO2 VBG pO2 VBG HCO3 VBG Total CO2 VBG O2 Saturation VBG Base Excess Sodium Potassium Chloride Carbon Dioxide Anion Gap BUN Creatinine Estimated GFR/1.73 m2 Glucose Calcium Magnesium Total Bilirubin AST ALT Alkaline Phosphatase Lactate Dehydrogenase 167 Troponin I 466 H* 683 H* NT-Pro-B Natriuret Pep Total Protein Albumin COVID-19 Source SARS-CoV-2 (PCR) Influenza Type A (PCR) Influenza Type B (PCR) RSV (PCR) Last Vital Signs Temp 36.8 C 08/02/21 10:33 Pulse 87 08/02/21 18:45 Resp 15 08/02/21 18:50 BP 110/53 L 08/02/21 18:45 Pulse Ox 88 L 08/02/21 18:50
[2021-08-02] MEDS: cefTRIAXone 1,000 MG in Normal Saline 50 ML 100 MG IVPB (22:16)
[2021-08-02] MEDS: Lactated Ringers 1,000 ML 75 ML IV (23:46)
[2021-08-02] MEDS: Normal Saline Flush 10 ML SYR IVP (23:46)
[2021-08-03] VITALS (10 sets, daily range): BP systolic 110–125; BP diastolic 50–66; PULSE 80–89; RESP 2–20; TEMP 31–36.6; O2SAT 90–95
[2021-08-03] MEDS: Albuterol/Ipratropium 3 ML UPD VIAL UPD ×3 (03:00→20:03)
[2021-08-03] MEDS: fentaNYL 100 MCG/2 ML VIAL IVP (05:52)
[2021-08-03] MEDS: metroNIDAZOLE 500 MG/100 ML BAG 100 MG IVPB ×3 (06:03→22:19)
[2021-08-03 06:34] LABS: HCT 37.5 % (40.0-50.0); HGB 11.1 g/dL (13.5-17.5); MCH 25.2 pg (27.0-33.0); MCHC 29.6 % (32.0-36.0); MCV 85 fL (80-95); MPV 11.5 fL (8.0-11.0); Platelet Count 278 10^3/uL (130-400); RDW 17.2 % (11.8-14.1); RDW-SD 53.6 fL
[2021-08-03 06:44] LABS: WBC 29.94 10^3/uL (4.4-10.8)
[2021-08-03 07:10] LABS: Troponin I 746 ng/L (<or=60)
[2021-08-03] MEDS: Omeprazole 20 MG CAPCR PO (09:12)
[2021-08-03] MEDS: Methadone Liquid 10 MG/ML 119 MG PO (09:12)
[2021-08-03] MEDS: Aspirin E.C. 81 MG TABEC PO (09:12)
--- NOTE | 2021-08-03 11:28 | W.SPSTE ---
Date of service: 08/03/21 Time of Service: 10:29 Subjective Consult received by Erich Middleton for Clinical Swallow Evaluation in setting of suspected aspiration pna and patient reported dysphagia symptoms. Upon initial chart review, planned to complete MBSS this date but patient had since been placed on high flow oxygenation (not mobile, and not sales representative electric service of baseline swallow function in order to provide appropriate swallow recommendations). Deferred for now, may be appropriate as respiratory status improves and rad schedule allows.. Patient was contacted at bedside this date, mildly reclined, agreeable to participate in clinical swallow evaluation. HOB was elevated for this session. Patient reports coughing with both liquids and solids at baseline. Endorses chronic GERD for which he has been medicated for many years. Endorses shortness of breath with meals as well as throughout day. He is on oxygen at home. He is edentulous and does not wear dentures because of poor fit. Mainly eats purees and very soft foods at home. Cleans out his mouth once every few days or so. Reports poor appetite, cites possible impact of chemotherapy. Has always been a picky eater. 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 Reports 1-=2 weeks of dry cough and worsening SOB, nofever or chills. 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 EMS summoned and report is of sats 68%, up to 90% on NRB mask. Here in ER findings of note for diffuse rhonchi, tenderness right chest; white count 55K with left shift; CXR RLL infiltrate; CT chest neg PE, with multifocal patchy pneumonitis; CT head negative save for known and stable brain lesions; trop 290/466/683; no acute changes EKG. VGB pH 7.27/ pCO2 68. Patient notes he has been having poor appetite for some time. Also notes that he occasionally has dysphagia to solids and will cough when eating. ?PFSH: Minimal documented, medical history is as reported above. Objective Objective Respiratory: High flow O2 at 40L 60% FiO2 Mental status: AAOx3 , able to recall recent events, demonstrates carryover of info/education within session. Speech: Largely WFL, mild imprecision ISO edentulousness. Language: WFL Predisposing dysphagia risk factors: COPD, GERD with oxygen supplementation. Clinical signs of possible chronic dysphagia: suspected aspiration PNA, malnutrition Precipitating dysphagia risk factors / triggering event: hypoxia ISO suspected PNA. Oral-Peripheral Exam: significant for: Edentulous. Has dentures but does not wear due to poor fit/pain. Oral mucosa: Mild dryness. Moderate salas/green buildup on tongue, able to largely resolve with extended oral care via suction sponges this date. Cough strength adequate and productive of salas/green sputum at baseline. Notable tongue weakness to resistance. Volitional swallow appears relatively timely and robust to palpation. Noting appearance of deconditioning/atrophy of facial muscles, patient is very emaciated. Food items tested: ?? [ ] None. Further swallow assessment not warranted at this time.? [X] Ice: [X] IDDSI 0: Via tsp (5cc), cup edge [ ] IDDSI 1: [X] IDDSI 2: Via cup edge [ ] IDDSI 3: [ ] IDDSI 4: Via tsp (5-10cc) [ ] IDDSI 5: [ ] IDDSI 6: [X] IDDSI 7: [ ] Pill/tablet: ? Oral phase: [X] WFL [ ] Leakage from mouth [ ] Difficulty with bolus manipulation [ ] Difficulty with a-p transport [ ] Difficulty chewing [ ] Pocketing [ ] Residue Pharyngeal phase: [ ] WFL [ ] Delayed swallow initiation [ ] Reduced hyolaryngeal elevation/excursion [x] Cough after swallow, though this is difficult to differentiate from baseline productive congested coughing this date. [ ] Voice change after swallow? [ ] Throat clearing? [ ] Endorsed stasis? Education Provided to patient & family & RN re: Normal vs disordered swallowing, impact of COPD, GERD, high flow oxygenation on swallow function, rationale for increased oral care, and rationale for recommended strategies, precautions, and diet consistency recommendations. Assessment Likely at least mild or moderate oral-pharyngeal dysphagia at baseline, complicated by continuous oxygen needs, shortness of breath and reduced coordination of breathing & swallowing in setting of COPD. Noting possible delayed s/sx aspiration this date but difficult to klystrom tube tester in setting of baseline congested breathing and cough productive of salas/green sputum. Noting tongue weakness on exam this date, suspect in setting of considerable deconditioning, though hyo-laryngeal elevation and excursion appear robust to palpation this date. Initiation appears timely. Oral care is infrequent at baseline. Patient should be assisted to complete oral care using in-line suction kits before and after any PO intake. Given high-flow oxygenation at this time and suspected aspiration PNA, recommend purees to minimize work of chewing/breathing during meals. Patient is agreeable. May trial upgraded textures with CARTON MAKING MACHINE OPERATOR only as respiratory status improves. Did not appreciate difference between thin and thickened liquids this date, but provided recommendation to control sip size to tsp size or less from cup edge which patient demonstrated successfully throughout session. Patient was receptive to safe swallowing recommendations as outlined below. Patient remains at significantly heightened risk of aspiration PNA in setting of chronic COPD requiring oxygen supplementation, GERD, and reduced immunocompetence. Risks may improve with increased mobility, improved respiratory function. He appears to be an excellent candidate for rehabilitation via strategy training given demonstrated carryover of recommendations reported by RN later this date. At the same time, if patient chooses a palliative/hospice direction for his care given brain metastases, he may benefit from education r/t palliative approaches to dysphagia management. Discharge recommendations: Pending inpatient progress and goals of care. Oral care training and education was a large focus of our session this date. Recommendations: DIET RECOMMENDATIONS: Solid: Level 4: Puree (once medically cleared). Liquid: Level 0: Thin liquids Medications: One at a time in tsp puree. For large pills, crush as able in tsp puree. Alter medications only as advised by MD/Pharmacy. ORAL CARE: Q4 and before & after PO intake For water only, oral care BEFORE intake is sufficient. Provide setup assist for suction oral kits. RISK MITIGATION: HOB upright as tolerated; upright for all PO intake. Encourage physical mobility as tolerated. ? Level of Assistance/Supervision: Distant/Intermittent supervision for all PO intake to ensure tolerance and maintenance of vitals during meals. PO intake only when awake/alert? ? Strategies/Adaptations/Assistive Equipment: Very small sips & bites. Slow rate of intake. Clear throat and re-swallow after sips of liquid. Reduce auditory and/or visual distractions when eating ? Posture/Positioning Needs: Maintain upright position at least 30 minutes after meals, Avoid meals/snacks 2-3 hours prior to reclining/sleeping, Sleep with head of bed elevated to reduce likelihood of nocturnal reflux Plan CARTON MAKING MACHINE OPERATOR to continue to follow while on unit to provide training and assess for safest/least restrictive diet. Short Term Goals: Patient/RN will report increased frequency of oral care to Q4 & before/after PO intake as recommended within one week. Further ST goals pending goals of care. ? Time spent: 60 minutes CARTON MAKING MACHINE OPERATOR CPT Code: 97342 Clinical Swallowing Evaluation Coding
--- NOTE | 2021-08-03 15:15 | CHAPLAIN ---
Robles was sitting up in bed, using a BiPap or CPap. He was pleasant and responded to some questions. I kept our conversation short as he was working hard to breathe. Robles was admitted yesterday with low oxygen rates and difficulty breathing. He was diagnosed with pneumonia and rib fractures (from a recent fall on his deck). I will continue to visit.
--- NOTE | 2021-08-03 15:32 | W.PM.PROGNOT ---
Date of Service Date of service: 08/03/21 Time of Service: 15:32 Assessment and Plan Assessment and plan (1) Acute respiratory failure with hypoxia and hypercapnia: Status: Acute Assessment and plan: Multifactorial - due to aspiration pneumonia, acute exacerbation of COPD, rib fx causing atelectasis and guarding due to pain. Continue treatment of aspiration pneumonia with ceftriaxone/flagyl. Encourage IS. Provide pain control. Add steroids. Wean O2 as tolerated. (2) Aspiration pneumonia: Status: Acute Assessment and plan: Present on admission. As above Evaluated by speech therapy - started on pureed diet with thin liquids. (3) Acute exacerbation of chronic obstructive pulmonary disease (COPD): Status: Acute Assessment and plan: As above Add prednisone to scheduled/prn nebs. Add symbicort (normally on trelegy at home). Not normally oxygen dependent. (4) Ocular lymphoma: Assessment and plan: Consulting palliative and hospice (5) Brain metastases: Assessment and plan: As above If we are able to get an MRI once his oxygen requiriment decreases, we will. (6) Elevated troponin: Status: Acute Assessment and plan: Suspect this is demand due to oxygen. Sometimes troponins become elevated with rhabdomyolysis as well - Check CPK. Not a candidate for intervention given brain metastases. 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 Palliative care and hospice are consulted. (7) Acute pain: Status: Acute Assessment and plan: Add scheduled tylenol. Continue methadone. Add lidocaine patch. Consider rib block (8) Multiple rib fractures: Status: Acute Assessment and plan: IS Pain control as above (9) Dysphagia: Status: Chronic Assessment and plan: Seen by speech therapy. Recommended pureed diet with thin liquids. (10) Fall: Status: Acute Assessment and plan: PT consulted. (11) DVT prophylaxis: Status: Acute Assessment and plan: SCDs (12) Discharge planning issues: Status: Acute Assessment and plan: DNR/DNI Palliative and PT consulted. Subjective Subjective Interval history since last seen: Mr Cruz states that he is feeling a little better. He denies dizziness, endorses difficulty swallowing, endorses R rib pain, states his breathing is better (he is on humidified heated High flow O2 at 40L 60% FiO2). Denies n/v. He states he is interested in hearing what his oncologist has to say. He was supposed to have a brain MRI here tomorrow - he understands that he can't get it while he is requiring the high flow system for oxygenation. He is willing to entertain options that his oncologist would have to offer him. But he is also interested in hearing about home hospice and is interested in meeting with both hospice and palliative care. We discussed that we need to work on lowering his oxygen requirement for the MRI to happen and for him to be able to be discharged home. I spoke to his sister Iraida and her as well - they were in the room. Exam Narrative Exam Narrative: General: Pleasant male, cachectic, in good spirits, A&Ox3, sitting up in bed on humidified heated high flow NC HEENT: EOMI, MMM Heart: RRR, no m/r/g Lungs: Diminished breath sounds on R, CTA on L Abdomen: soft, nontender, nondistended Extremities: no edema BLEs Objective Last Vital Signs Temp 36.2 C L 08/03/21 07:48 Pulse 80 08/03/21 08:07 Resp 18 08/03/21 08:07 BP 110/60 08/03/21 07:48 Pulse Ox 90 L 08/03/21 12:37 Laboratory Results - last 24 hr 08/02/21 08/02/21 08/02/21 13:30 18:22 20:37 WBC RBC Hgb Hct MCV MCH MCHC RDW Plt Count MPV Lactate Dehydrogenase 167 Troponin I 683 H* Cancelled 08/02/21 08/03/21 08/03/21 22:44 06:08 06:08 WBC 29.94 H* RBC 4.40 Hgb 11.1 L Hct 37.5 L MCV 85 MCH 25.2 L MCHC 29.6 L D RDW 17.2 H Plt Count 278 MPV 11.5 H Lactate Dehydrogenase Troponin I Cancelled 746 H*
[2021-08-03] MEDS: Lactated Ringers 1,000 ML 75 ML IV (16:17)
[2021-08-03] MEDS: Acetaminophen 500 MG TAB 1000 MG PO (16:18)
[2021-08-03] MEDS: Lidocaine 5% Patch 1 PATCH TP (16:18)
[2021-08-03 16:52] LABS: Lab Add On Test DONE
[2021-08-03 17:07] LABS: Creatine Kinase 193 U/L (39-308)
--- NOTE | 2021-08-03 17:50 | PDOC.CMIN ---
- If Service Date Differs Date of service: 08/03/21 Time of Service: 17:50 Care Management Initial Assess REASON FOR HOSPITALIZATION:: Pneumonia, rib fractures, COPD PAST MEDICAL HISTORY/PAST SURGICAL HISTORY:: All Active Problems. Pneumonia (Acute). Acute exacerbation of COPD. Dysphagia. elevated troponin. Medical History. Ocular lymphoma. Brain Metastases PREVIOUS FUNCTIONAL STATUS/SOCIAL/FAMILY SUPPORTS:: Robles lives in [facility] with his life partner, Garima, who is very supportive. He is originally from [place], [place]. 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 He has one child, but is not close with them, and they are not local. He has a sister and a brother, who are both from [place], who are supportive. He is independent with his ADL's. CURRENT FUNCTIONAL STATUS:: Robles was sitting up in bed when CM met with him. He stated that he is doing ok, and his pain is being well managed. Per report, he has high O2 requirements currently, he is on humidified heated high flow at 40L 60% FiO2. He reported that he went through one round of chemo about six weeks ago, and he felt he was too weak to do well. He stated that he is still recovering from the effects of the chemo. He is interested in talking to Palliative/Hospice about options and goals of care. He would like his partner, Garima, to be present if possible. Palliative was not available to see him today, but will have him as priority for a visit tomorrow. Hospice will also be available to meet with them tomorrow afternoon. CM will continue to follow. ADVANCE DIRECTIVES:: None on file. Palliative care consulted. Has patient been provided with info about the portal/API?: Yes Did the patient sign up for the portal?: No CODE STATUS:: DNR/DNI INSURANCE COVERAGE / FINANCIAL ISSUES:: MCR/CHERELLE CURRENT HOME/COMMUNITY SERVICES/EQUIPMENT:: No current services or equipment. PRIMARY CARE PHYSICIAN:: no current PCP POTENTIAL DISCHARGE NEEDS:: Evaluations for further needs, Palliative/Hospice consult, follow up appointments. PATIENT/FAMILY EDUCATION NEEDS:: Review discharge instructions and limitations, discussion of self care needs including ask me three. ANTICIPATED BARRIERS TO DISCHARGE:: High O2 requirements, goals of care. TRANSPORTATION:: Via private vehicle by his partner, Garima. PLAN:: Anticipate Robles will return home when medically cleared. He may have HH vs Hospice supports in place. His partner, Garima will drive him home via private vehicle. He will follow up with his PCP and discharge plan of care. CM will continue to follow.
[2021-08-03] MEDS: oxyCODONE 5 MG TAB PO (20:02)
[2021-08-03] MEDS: Budesonide/Formoterol 80/4.5 6.9 GM 60 PUFF INH IH (20:03)
[2021-08-03] MEDS: Docusate Sodium 100 MG/10 ML CUP PO (20:03)
[2021-08-03] MEDS: cefTRIAXone 1 GM/50 ML BAG IVPB (21:36)
[2021-08-03] MEDS: Normal Saline Flush 10 ML SYR IVP (21:37)
[2021-08-03] MEDS: fentaNYL 100 MCG/2 ML VIAL 50 MCG IVP (21:37)
[2021-08-04 02:06] VITALS: RESP 5; RESP 7
[2021-08-04] MEDS: Acetaminophen 500 MG TAB 1000 MG PO ×4 (02:06→23:25)
[2021-08-04] MEDS: Albuterol/Ipratropium 3 ML UPD VIAL UPD ×4 (02:06→19:54)
[2021-08-04] MEDS: metroNIDAZOLE 500 MG/100 ML BAG 100 MG IVPB ×3 (06:36→22:33)
[2021-08-04] MEDS: Omeprazole 20 MG CAPCR PO (06:36)
[2021-08-04 07:04] LABS: Abs Immature Grans 0.09 10^3/uL (0.0-0.06); Absolute Eosinophil Count 0.07 10^3/uL (0.0-0.7); Absolute Lymphocyte Count 0.93 10^3/uL (1.2-3.4); Absolute Monocyte Count 1.03 10^3/uL (0.1-0.8); Absolute Neutrophil Count 12.85 10^3/uL (1.2-6.7); Basophils % 0.1; Eosinophils % 0.5; HCT 33.3 % (40.0-50.0); HGB 10.2 g/dL (13.5-17.5); Immature Grans % 0.6; Lymphocytes % 6.2; MCH 25.6 pg (27.0-33.0); MCHC 30.6 % (32.0-36.0); MCV 84 fL (80-95); MPV 11.5 fL (8.0-11.0); Monocytes % 6.9; Neutrophils % 85.7; Platelet Count 263 10^3/uL (130-400); RBC 3.99 10^6/uL (4.36-5.78); RDW 16.9 % (11.8-14.1); RDW-SD 51.7 fL; WBC 14.99 10^3/uL (4.4-10.8)
[2021-08-04 07:13] LABS: Absolute Basophil Count 0.01 10^3/uL (0.0-0.2)
[2021-08-04 07:14] LABS: Anion Gap 5.2 mmol/L (3-11); BUN 12 mg/dL (7-18); CO2 31.8 mmol/L (21.0-32.0); CREATININE 0.6 mg/dL (0.70-1.30); Calcium 8.3 mg/dL (8.5-10.1); Chloride 102 mmol/L (98-107); Glucose 92 mg/dL (74-106); Potassium 3.2 mmol/L (3.5-5.1); Sodium 139 mmol/L (136-145)
[2021-08-04 07:51] VITALS: RESP 18; RESP 8
[2021-08-04] MEDS: Budesonide/Formoterol 80/4.5 6.9 GM 60 PUFF INH IH ×2 (07:53→19:54)
[2021-08-04] MEDS: Methadone Liquid 10 MG/ML 119 MG PO (08:25)
[2021-08-04] MEDS: predniSONE 20 MG TAB 40 MG PO (08:25)
[2021-08-04] MEDS: oxyCODONE 5 MG TAB PO (08:26)
[2021-08-04 08:33] VITALS: BP 145/68; PULSE 80; RESP 17; TEMP 36.6; O2SAT 92
[2021-08-04] MEDS: Lactated Ringers 1,000 ML 75 ML IV (10:05)
[2021-08-04] MEDS: Normal Saline Flush 10 ML SYR IVP (10:12)
[2021-08-04] MEDS: Potassium Chloride 20 MEQ TABCR 40 MEQ PO (10:12)
[2021-08-04 14:05] VITALS: RESP 8
[2021-08-04] MEDS: fentaNYL 100 MCG/2 ML VIAL 50 MCG IVP ×3 (14:30→23:24)
--- NOTE | 2021-08-04 15:30 | W.PALLCONSUL ---
Date of service: 08/04/21 Time of Service: 15:30 History of Present Illness Narrative: Mr. Arboleda is a 70 y/o M currently inpatient at [facility] 04/28 ; [facility] dx for ocular lymphoma cancer w/brain mets; PMHx sig for COPD, h/o NV w/stent placement 12 years ago, CVA affecting RLE 8 years ago; [facility] consult placed to review GOC and code status; present today is pt?s partner Garima Pt reports feeling better/stronger today compared to presentation in ED on 08/02; reports pain controlled today; admits decreased appetite, dysphagia which was worse prior to starting abx is improving, ate turkey and mashed potatoes today, is uninterested in eating pureed diet and would chose not to eat if that was option; concerns over h/o eating disorder, will only eat foods wants to eat; Recently moved to [facility] w/partner Garima, of nearly 15 years; has been receiving ocular lymphoma tx for 2 years in eyes, 3 wks ago was first tx of higher dose, IV and chemo, which ?beat him up? and ?knocked me out?, preference to not continue w/those treatments, pt preference to continue eye therapy at this time, willing to trial pill therapy and see response, will d/c if SE too severe; oncology team [facility] Dr. Key and Amber Gonzalez, apt next w/MRI scheduled to monitor progression Spoke to staff: pain controlled w/methadone, fentanyl IV (working best) and oxycodone; has not moved BM since 07/31, w/limited intake and opioids as major contributors to this; continues w/ high ross O2, recently started trials of decrease, currently at 40L at 40% Fi02 and stable; MANAGER CCU progress up from pureed diet, modified barium to be scheduled Hospital course: presented to [facility] ED via EMS on 08/02/21 w/CC SOB and hypoxia; CXR found severe underlying emphysematous changes, superimposed RLL infiltrate, fractures R lateral ribs 8-10; head CT neg elevated troponin at 290, repeat 466, then 683, elevated WBC 55k w/left shift [facility] cardio consulted, ?oncology consulted; started on metronidazole and levofloxacin; transitioned to inpatient; improving, goal to continue taper of O2, no discharge stevens at this time COLST and HCA completed today: DNR/I, DNT unless comfort can?t be met at home, abx/feeding tube trial for comfort, always IVF, limited interventions w/comfort at goal; HCA: Garima Assessment and Plan Assessment and plan (1) Acute exacerbation of chronic obstructive pulmonary disease (COPD): Status: Acute Assessment and plan: improving w/ab (2) Dysphagia: Status: Chronic Assessment and plan: f/b MANAGER CCU, step up from [facility], will continue to follow; pt w/h/o eating disorder, will only eat foods he wants to eat; no vegetables (3) Aspiration pneumonia: Status: Acute Assessment and plan: improving w/abx (4) Ocular lymphoma: Assessment and plan: f/b [facility], apt next week to review POC (5) Brain metastases: (6) DNR (do not resuscitate): Status: Acute Assessment and plan: COLST completed today, DNR/I/T, limited interventions (7) Palliative care patient: Status: Acute Assessment and plan: continue to follow, will follow while inpatient, schedule f/u outpatient HV upon discharge COLST and HCA completed today Review of Systems Constitutional Constitutional: Reports as per HPI and Reports system reviewed and no additional complaints, except as documented PFSH All Active Problems (Updated 08/05/21 @ 09:34 by Della Thakur NP) Palliative care patient (Acute) DNR (do not resuscitate) (Acute) Acute exacerbation of chronic obstructive pulmonary disease (COPD) (Acute) Discharge planning issues (Acute) DVT prophylaxis (Acute) Dysphagia (Chronic) Acute pain (Acute) Elevated troponin (Acute) Acute respiratory failure with hypoxia and hypercapnia (Acute) Aspiration pneumonia (Acute) Multiple rib fractures (Acute) Non-ST elevation NV (NSTEMI) (Acute) Fall (Acute) Pneumonia (Acute) Medical History Brain metastases Ocular lymphoma Social History Smoking/Tobacco Use Status: Current every day Tobacco Type: cigarettes Smoking risk assessment performed?: Yes Alcohol Intake: never Drug use: Never Substance use type: does not use Do you feel safe at home: Yes Do you feel safe in your relationship?: Yes Exam Narrative Exam Narrative: sitting up in bed throughout visit; energy wanes throughout visit; cooperative, pleasant, engaged Const General: comfortable, no acute distress and ill appearing Nutritional Appearance: cachectic Orientation: alert, awake and oriented x3 HENMT Ears: hearing grossly normal bilaterally Other: swallows liquids appropriately, no coughing or gurgling Resp Effort & Inspection: normal respiratory effort, able to speak in complete sentences, no audible wheezes and no cough Psych Mental Status: mental status grossly normal Mood: congruent mood Thought Process: normal Insight: insight good Judgment: judgment good Results Last Vital Signs Temp 97.2 F L 08/05/21 07:33 Pulse 60 08/05/21 07:33 Resp 18 08/05/21 07:36 BP 159/65 H 08/05/21 07:33 Pulse Ox 93 08/05/21 07:36 Labs Result diagrams: 08/05/21 06:02 08/05/21 06:02 Labs: Laboratory Results - last 24 hr 08/02/21 08/04/21 08/04/21 11:29 06:30 06:30 WBC RBC Hgb Hct MCV MCH MCHC RDW Plt Count MPV Immature Gran % Neutrophils % Lymphocytes % Monocytes % Eosinophils % Basophils % Nucleated RBC % Absolute Neutrophils Absolute Lymphocytes Absolute Monocytes Absolute Eosinophils Absolute Basophils ABG Sample Site Cancelled ABG pH Cancelled ABG pCO2 Cancelled ABG pO2 Cancelled ABG HCO3 Cancelled ABG Total CO2 Cancelled ABG O2 Saturation Cancelled ABG Base Excess Cancelled Oxygen Liter Flow Cancelled FiO2 Cancelled Sodium Potassium Chloride Carbon Dioxide Anion Gap BUN Creatinine Estimated GFR/1.73 m2 Glucose Calcium Magnesium Troponin I 586 H* Add-On Test Request DONE 08/05/21 08/05/21 06:02 06:02 WBC 12.74 H RBC 3.84 L Hgb 9.8 L Hct 32.0 L MCV 83 MCH 25.5 L MCHC 30.6 L RDW 17.0 H Plt Count 281 MPV 11.5 H Immature Gran % 0.7 Neutrophils % 85.2 Lymphocytes % 6.6 Monocytes % 7.2 Eosinophils % 0.2 Basophils % 0.1 Nucleated RBC % 0.0 Absolute Neutrophils 10.85 H Absolute Lymphocytes 0.84 L Absolute Monocytes 0.92 H Absolute Eosinophils 0.03 Absolute Basophils 0.01 ABG Sample Site ABG pH ABG pCO2 ABG pO2 ABG HCO3 ABG Total CO2 ABG O2 Saturation ABG Base Excess Oxygen Liter Flow FiO2 Sodium 141 Potassium 3.4 L Chloride 103 Carbon Dioxide 32.0 Anion Gap 6.0 BUN 11 Creatinine 0.6 L Estimated GFR/1.73 m2 >= 60.00 Glucose 84 Calcium 8.5 Magnesium 2.0 Troponin I Add-On Test Request
--- NOTE | 2021-08-04 15:57 | W.SPSTP ---
Date of service: 08/04/21 Time of Service: 15:57 Subjective Patient was contacted at bedside this date, awake/alert and resting comfortably while wearing HFNC; HOB was elevated; Palliative Care and marketing underwriter Garima also present for guided discussion re: dysphagia management and plan of care. Patient reports he recalls plan for VFSE/MBSS and both he and his marketing underwriter are in agreement with this if able to schedule while inpatient; patient reports he learned a lot from the lady yesterday regarding swallow function and safety. Objective/Assessment/Plan Objective Treatment Techniques & Outcomes: Objective Respiratory: Continues on HFNC however currently weaning from previous levels per RN Mental status: AAOx3 , able to recall recent events, demonstrates carryover of info/education within session. Speech: Largely WFL, mild imprecision ISO edentulousness. Language: WFL Predisposing dysphagia risk factors: COPD, GERD with oxygen supplementation. Clinical signs of possible chronic dysphagia: suspected aspiration PNA, malnutrition Precipitating dysphagia risk factors / triggering event: hypoxia ISO suspected PNA. Short Term Goals: - Training and assessment for safest/least restrictive diet IN PROGRESS Food items tested: ?? [ ] None. Further swallow assessment not warranted at this time.? [] Ice: [X] IDDSI 0: x3, Via straw (negative overt s.s aspiration) [ ] IDDSI 1: [] IDDSI 2: [ ] IDDSI 3: [ ] IDDSI 4: [ ] IDDSI 5: [ ] IDDSI 6: [X] IDDSI 7: ?Reports being provided with regular texture turkey sandwich for lunch; patient denies SOB, overt s.s aspiration during this time [x] Pill/tablet: Per RN, patient provided with larger pill cut in half in pureed texture, resulting in globus; resolved with successive liquid wash Upgrade to Level 5 Minced & Moist for evening meal; continue monitoring/distant supervision during mealtimes as patient is weaned from HFNC. Further diet texture change(s) per ELEVATOR SERVICE MECHANIC. - Ensure guidance re: adequate oral care with patient/staff/carepartners IN PROGRESS See below. Patient/Caregiver/Staff Education: Discussed available options for diet texture levels given patient preference to not eat pureed solids, which patient and spouse were agreeable to for this evening, as well as supervision by staff during po intake to monitor for respiratory changes (Garima reports patient provided with mostly soft&bite sized foods at home until recent admission, also has hx of eating disorder + picky eating habits which limit overall po intake at baseline aside from diet textures). Reinforced importance of thorough oral care regimen. Discussed recommendations, including diet upgrade to Level 5 Minced & Moist solids with Dr Thomas and DOMO Johnson. Assessment Overall, patient appears to be tolerating po intake better relative to yesterday, as evidenced by reduced overt s.s aspiration with thin liquid intake via straw (did not assess solid trials this date given patient and marketing underwriter with Palliative Care during visit); DOMO Johnson reported patient verbalizing that he was provided with regular texture solid (level 7) food at lunch this date (without any indication of upgraded diet texture order); patient confirms that he ate regular texture turkey sandwich and denies presence of staff during this time. Note: ELEVATOR SERVICE MECHANIC called kitchen to discuss current diet texture recommendation and rationale, ensure carryover of current diet order, and inquired re: details for having patient provided with level 7 solid foods earlier this date; staff report they are aware of previous pureed solid order and are not sure who provided patient with regular texture this afternoon, and this may have been a mix up or from the gluten free trevor (?) Plan Plan: ELEVATOR SERVICE MECHANIC to follow while on unit, likely to consider VFSE/MBSS per RAD scheduling availability. Recommendations Diet: 5-Minced & Moist (Mechancially Altered/Ground) Liquids: 0-Thin Liquids Other: Monitor for overt s.s aspiration (cough, throat clear, wet vocal quality), continue guided conversation re: dysphagia with palliative approach / involvement of care partners Supervision: Direct Supervision via of [facility] staff,self-feeding, Frequent/periodic check-ins and Monitor O2 stats(do not feed patient if O2 under 90%) Recommendations: Medications: One at a time in tsp puree. For large pills, crush as able in tsp puree. Alter medications only as advised by MD/Pharmacy. ORAL CARE:? Q4 and before & after PO intake For water only, oral care BEFORE intake is sufficient. Provide setup assist for suction oral kits. RISK MITIGATION: HOB upright as tolerated; upright for all PO intake. Encourage physical mobility as tolerated. ? Level of Assistance/Supervision: Distant/Intermittent supervision for all PO intake?to ensure tolerance and maintenance of vitals during meals. PO intake only when awake/alert? ? Strategies/Adaptations/Assistive Equipment: Very small sips & bites. Slow rate of intake. Clear throat and re-swallow after sips of liquid. Reduce auditory and/or visual distractions when eating ? Posture/Positioning Needs: Maintain upright position at least 30 minutes after meals, Avoid meals/snacks 2-3 hours prior to reclining/sleeping, Sleep with head of bed elevated to reduce likelihood of nocturnal reflux Additional Notes: Total time spent: 50 minutes CPT Code: 67609 Coding
[2021-08-04 16:29] VITALS: BP 107/67; PULSE 84; RESP 16; TEMP 36.1; O2SAT 94
[2021-08-04] MEDS: Lidocaine 5% Patch 1 PATCH TP (17:05)
--- NOTE | 2021-08-04 17:40 | CMPROGNOTE_ITS ---
- If Service Date Differs Date of service: 08/04/21 Time of Service: 17:40 Care Management Progress Note S/O: Robles was sitting up in bed when CM met with him. His s/o, Garima, was just leaving for the day. Robles and Garima met with Palliative care and discussed his goals of care. Robles completed a COLST form, as well as a HCA appointment. Robles stated that he has an appointment with his Oncologist soon, and would like to meet with that team again before deciding to go home on Hospice. He will continue to see Palliative care at home. He continues to have high O2 requirements, therefore he is not medically cleared for discharge. CM will continue to follow. A: Robles is a 70 year old male admitted to [facility] on 08/02/21 for PNA, rib fractures, COPD. P: Robles will return home when medically cleared. He may benefit from new services upon discharge. His s/o, Garima will drive him home. He will follow up with Palliative care, his PCP and discharge plan of care. CM will continue to support discharge planning considerations.
--- NOTE | 2021-08-04 19:32 | PGE_ITS ---
Date of Service Date of service: 08/04/21 Time of Service: 18:30 Assessment and Plan Assessment and plan (1) Acute respiratory failure with hypoxia and hypercapnia: Status: Acute Assessment and plan: Multifactorial - due to aspiration pneumonia, acute exacerbation of COPD, rib fx causing atelectasis and guarding due to pain. Continue treatment of aspiration pneumonia with ceftriaxone/flagyl. Encourage IS. Focus on pain control - add gabapentin. Continue prednisone. Wean O2 as tolerated. (2) Aspiration pneumonia: Status: Acute Assessment and plan: Present on admission. As above speech therapy recommended advancing diet today to minced/moist/thin. (3) Acute exacerbation of chronic obstructive pulmonary disease (COPD): Status: Acute Assessment and plan: As above Continue abx,prednisone, scheduled/prn nebs, symbicort. Pulmonary toileting. Wean O2 as tolerated. (4) Ocular lymphoma: Assessment and plan: Consulting palliative and hospice (5) Brain metastases: Assessment and plan: Seen by palliative today. Still interested in seeing what options his oncologist has for him. He was due for an outpatient MRI of the brain. If we are able to get an MRI once his oxygen requiriment decreases, we will. (6) Elevated troponin: Status: Acute Assessment and plan: Suspect this is demand due to oxygen. Not a candidate for intervention given brain metastases and overall prognosis. I do not think that further ischemic workup would foreign exchange trader. Palliative care and hospice are consulted. (7) Acute pain: Status: Acute Assessment and plan: Continue scheduled tylenol, methadone, lidocaine patch. Add gabapentin. Consider rib block (8) Multiple rib fractures: Status: Acute Assessment and plan: IS Pain control as above (9) Dysphagia: Status: Chronic Assessment and plan: Seen by speech therapy. As above - trialing minced/moist diet with thin liquids. (10) Fall: Status: Acute Assessment and plan: PT consulted. (11) DVT prophylaxis: Status: Acute Assessment and plan: SCDs (12) Discharge planning issues: Status: Acute Assessment and plan: DNR/DNI Palliative and PT consulted. Subjective Subjective Interval history since last seen: Mr Cruz states that he is feeling better today. He is less short of breath. His pain is 7/10. Denies dizziness, nausea. Seen by palliative care. Discussed his code status - DNR/DNI. He is now on 40 L 40%FiO2. Exam Narrative Exam Narrative: General: Pleasant male, cachectic, in good spirits, A&Ox3, sitting up in bed on humidified heated high flow NC (40L 40% FiO2). HEENT: EOMI, MMM Heart: RRR, no m/r/g Lungs: Diminished breath sounds B, splinting Abdomen: soft, nontender, nondistended Extremities: no edema BLEs Objective Last Vital Signs Temp 36.1 C L 08/04/21 16:29 Pulse 84 08/04/21 16:29 Resp 16 08/04/21 16:29 BP 107/67 08/04/21 16:29 Pulse Ox 94 08/04/21 16:29 Laboratory Results - last 24 hr 08/04/21 08/04/21 06:30 06:30 WBC 14.99 H RBC 3.99 L Hgb 10.2 L Hct 33.3 L MCV 84 MCH 25.6 L MCHC 30.6 L D RDW 16.9 H Plt Count 263 MPV 11.5 H Immature Gran % 0.6 Neutrophils % 85.7 Lymphocytes % 6.2 Monocytes % 6.9 Eosinophils % 0.5 Basophils % 0.1 Nucleated RBC % 0.0 Absolute Neutrophils 12.85 H Absolute Lymphocytes 0.93 L Absolute Monocytes 1.03 H Absolute Eosinophils 0.07 Absolute Basophils 0.01 Sodium 139 Potassium 3.2 L Chloride 102 Carbon Dioxide 31.8 Anion Gap 5.2 BUN 12 Creatinine 0.6 L Estimated GFR/1.73 m2 >= 60.00 Glucose 92 Calcium 8.3 L Magnesium 2.0
[2021-08-04] MEDS: Gabapentin 100 MG CAP PO (20:09)
[2021-08-04 21:13] LABS: Lab Add On Test DONE
[2021-08-04] MEDS: cefTRIAXone 1 GM/50 ML BAG IVPB (21:13)
[2021-08-04 21:37] LABS: Troponin I 586 ng/L (<or=60)
[2021-08-04 23:50] VITALS: BP 123/64; PULSE 73; RESP 20; TEMP 36.2; O2SAT 94
[2021-08-05] MEDS: metroNIDAZOLE 500 MG/100 ML BAG 100 MG IVPB ×3 (05:34→22:21)
[2021-08-05] MEDS: fentaNYL 100 MCG/2 ML VIAL 50 MCG IVP ×4 (06:22→23:54)
[2021-08-05 07:19] LABS: Abs Immature Grans 0.09 10^3/uL (0.0-0.06); Absolute Basophil Count 0.01 10^3/uL (0.0-0.2); Absolute Lymphocyte Count 0.84 10^3/uL (1.2-3.4); Absolute Monocyte Count 0.92 10^3/uL (0.1-0.8); Basophils % 0.1; Eosinophils % 0.2; HGB 9.8 g/dL (13.5-17.5); Immature Grans % 0.7; Lymphocytes % 6.6; MCH 25.5 pg (27.0-33.0); MCHC 30.6 % (32.0-36.0); MCV 83 fL (80-95); MPV 11.5 fL (8.0-11.0); Monocytes % 7.2; Neutrophils % 85.2; Platelet Count 281 10^3/uL (130-400); RBC 3.84 10^6/uL (4.36-5.78); RDW-SD 51.9 fL; WBC 12.74 10^3/uL (4.4-10.8)
[2021-08-05 07:23] LABS: BUN 11 mg/dL (7-18); CREATININE 0.6 mg/dL (0.70-1.30); Calcium 8.5 mg/dL (8.5-10.1); Chloride 103 mmol/L (98-107); Glucose 84 mg/dL (74-106); Potassium 3.4 mmol/L (3.5-5.1); Sodium 141 mmol/L (136-145)
[2021-08-05 07:33] VITALS: BP 159/65; PULSE 60; RESP 20; TEMP 36.2; O2SAT 93
[2021-08-05 07:35] LABS: Absolute Eosinophil Count 0.03 10^3/uL (0.0-0.7); Absolute Neutrophil Count 10.85 10^3/uL (1.2-6.7)
[2021-08-05 07:36] VITALS: RESP 18; RESP 2; RESP 8; O2SAT 93
[2021-08-05] MEDS: Albuterol/Ipratropium 3 ML UPD VIAL UPD ×3 (07:36→19:43)
[2021-08-05] MEDS: Methadone Liquid 10 MG/ML 119 MG PO (08:34)
[2021-08-05] MEDS: Acetaminophen 500 MG TAB 1000 MG PO ×3 (08:59→23:54)
[2021-08-05] MEDS: Gabapentin 100 MG CAP PO ×3 (09:00→19:43)
[2021-08-05] MEDS: Normal Saline Flush 10 ML SYR IVP ×4 (09:00→21:17)
[2021-08-05] MEDS: Omeprazole 20 MG CAPCR PO (09:00)
[2021-08-05] MEDS: predniSONE 20 MG TAB 40 MG PO (09:00)
--- NOTE | 2021-08-05 09:28 | PDOC.CMPRO ---
- If Service Date Differs Date of service: 08/05/21 Time of Service: 09:29 Care Management Progress Note S/O: Robles and Garima met with Palliative care and discussed his goals of care. Robles completed a COLST form, as well as a HCA appointment. Robles stated that he has an appointment with his Oncologist soon, and would like to meet with that team again before deciding to go home on Hospice. He will continue to see Palliative care at home. He continues to have high O2 requirements, therefore he is not medically cleared for discharge. CM will continue to follow. A: Robles is a 70 year old male admitted to [facility] on 08/02/21 for PNA, rib fractures, COPD. P: Robles will return home when medically cleared. He may benefit from new services upon discharge. His s/o, Garima will drive him home. He will follow up with Palliative care, his PCP and discharge plan of care. CM will continue to support discharge planning considerations.
[2021-08-05] MEDS: Budesonide/Formoterol 80/4.5 6.9 GM 60 PUFF INH IH ×2 (10:29→19:43)
[2021-08-05] MEDS: Polyethylene Glycol 3350 17 GM PACKET PO ×2 (10:29→19:43)
--- NOTE | 2021-08-05 12:10 | W.SPSTP ---
Date of service: 08/05/21 Time of Service: 15:54 Subjective Patient was contacted at bedside, upright in chair this date. He was in the midst of eating his lunch. Television on with high volume. Hospitalist was present initially performing exam. Per hospitalist, patient likely to be weaned off High Flow oxygen by tomorrow. Patient reports good tolerance of current diet. He also shares he tried to share some of the education provided by MATERIAL FLOW ANALYST to his family who was visiting, but struggled a bit to do this. He found the education to be particularly useful. MATERIAL FLOW ANALYST returning in afternoon to provide handouts which can be shared with family members. Objective/Assessment/Plan Objective Treatment Techniques & Outcomes: Respiratory: Continues on HFNC however currently weaning from previous levels per RN Short Term Goals: - Training and assessment for safest/least restrictive diet IN PROGRESS Food items tested: ?? [ ] None. Further swallow assessment not warranted at this time.? [] Ice: [X] IDDSI 0: x3, Via straw [ ] IDDSI 1: [] IDDSI 2: [ ] IDDSI 3: [ ] IDDSI 4: [x] IDDSI 5: Roast pork with gravy (minced/moist), mashed potatoes x7 via tsp [ ] IDDSI 6: [ ] IDDSI 7: [ ] Pill/tablet: Noting patient engaging in conversation while eating this date. Reminders to reduce conversation and distractions as able. S/sx aspiration: Negative overt. Subtle (?) wet vocal quality intermittently/delayed. Resolved with cued volitional throat clear. Provided reminders/rationale for gentle throat clear and re-swallow throughout meals. Discussed option to trial upgraded diet texture levels, but patient feels this is his ideal texture. Maintain Level 5 Minced & Moist ; continue monitoring/distant supervision during mealtimes as patient is weaned from HFNC. Further diet texture change(s) per MATERIAL FLOW ANALYST. - Ensure guidance re: adequate? oral care with patient/staff/carepartners IN PROGRESS See below. Reinforced importance of thorough oral care regimen. RN reports he requested additional oral care supplies earlier this date and reports excellent adherence. Assessment Patient well tolerates recently upgraded level 5 Minced/Moist diet well per observation this date and RN/patient report. He continues to make progress in decreasing his oxygen needs per RN/Hospitalist. Patient will benefit from reinforcement of education regarding aspiration precautions and strategies (distraction, throat clears) in next visit. He continues with good adherence to oral care recommendations. Pending respiratory progress he may be appropriate for MBSS prior to discharge (if DI has availability), or as outpatient. Patient remains very receptive to education and recommendations provided. Plan Plan: MATERIAL FLOW ANALYST to follow while on unit, likely to consider?VFSE/MBSS per RAD scheduling availability. Recommendations Recommendations: Diet: 5-Minced & Moist (Mechancially Altered/Ground) Liquids: 0-Thin Liquids Other: Monitor for overt s.s aspiration (cough, throat clear, wet vocal quality), continue guided conversation re: dysphagia with palliative approach / involvement of care partners Supervision: Direct Supervision via of [facility] staff,self-feeding, Frequent/periodic check-ins and Monitor O2 stats(do not feed patient if O2 under 90%) Recommendations: Medications: One at a time in tsp puree. For large pills, crush as able in tsp puree. Alter medications only as advised by MD/Pharmacy. ORAL CARE:? Q4 and before & after PO intake For water only, oral care BEFORE intake is sufficient. Provide setup assist for suction oral kits. RISK MITIGATION: HOB upright as tolerated; upright for all PO intake. Encourage physical mobility as tolerated. ? Level of Assistance/Supervision: Distant/Intermittent supervision for all PO intake?to ensure tolerance and maintenance of vitals during meals. PO intake only when awake/alert? ? Strategies/Adaptations/Assistive Equipment: Very small sips & bites. Slow rate of intake. Clear throat and re-swallow after sips of liquid. Reduce auditory and/or visual distractions when eating ? Posture/Positioning Needs: Maintain upright position at least 30 minutes after meals, Avoid meals/snacks 2-3 hours prior to reclining/sleeping, Sleep with head of bed elevated to reduce likelihood of nocturnal reflux Additional Notes: Total time spent: 25 minutes CPT Code: 49593 Coding
[2021-08-05] MEDS: Senna TAB 1 TAB PO (13:21)
[2021-08-05 13:46] VITALS: RESP 8
[2021-08-05 14:52] VITALS: BP 114/66; PULSE 80; RESP 20; TEMP 36.3; O2SAT 88
--- NOTE | 2021-08-05 14:53 | CHAPLAIN ---
Robles was up in his chair when I visited, and watching tv. He also had a book and his glasses nearby. He remembered that I visited the day before yesterday, but did not seem interested in a visit today. According to Palliative Care notes from Lashell Connolly NP, Robles has agreed to have Palliative Care continue to follow him when he goes home. He said he will wait until after meeting with his oncologist to see if he wants to be admitted to hospice.
[2021-08-05 15:13] VITALS: O2SAT 90
[2021-08-05] MEDS: Lidocaine 5% Patch 1 PATCH TP (16:52)
--- NOTE | 2021-08-05 17:47 | PGE_ITS ---
Date of Service Date of service: 08/05/21 Time of Service: 12:30 Assessment and Plan Assessment and plan (1) Palliative care patient: Status: Acute Assessment and plan: DNR/DNI Palliative and PT consulted (2) Acute exacerbation of chronic obstructive pulmonary disease (COPD): Status: Acute Assessment and plan: Will conitnue Duoneb; PRN PRACHI, Symbicort (3) DVT prophylaxis: Status: Acute Assessment and plan: TEDs; no pharmacologic prophylaxis d/t ribs fractures. (4) Aspiration pneumonia: Status: Acute Assessment and plan: WBC 12.74 from 14.99 Will continue treatment of aspiration pneumonia with ceftriaxone/flagyl. 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 Will continue recommended pureed diet with thin liquids (9) Discharge planning issues: Status: Acute Assessment and plan: ?Care management is following patient: will return home when medically cleared; may benefit from new services upon discharge. His s/o, Garima will drive him home. He will follow up with Palliative care, his PCP and discharge plan of care. CM will continue to support discharge planning considerations. Subjective Subjective Interval history since last seen: Mr Cruz states that he is feeling better today. He is less short of breath. He feels pain is under control and does not need more pain medicines.. Denies dizziness, nausea. Seen by palliative care. Discussed his code status - DNR/DNI. He is now on 40L and 33% O2. Exam Narrative Exam Narrative: sitting up in chair having lunch, completing full sentences during interaction cooperative, pleasant, engaged Const General: comfortable, no acute distress and ill appearing Nutritional Appearance: cachectic Orientation: alert, awake and oriented x3 HENMT Head: normocephalic and atraumatic Ears: hearing grossly normal bilaterally Other: swallows liquids appropriately, no coughing or gurgling Eyes General: appearance normal, both eyes and all related structures Neck Neck: no anterior neck swelling Chest Chest: other (Cachectic) Resp Effort & Inspection: normal respiratory effort, able to speak in complete sentences, no audible wheezes and no cough Auscultation: clear to auscultation bilaterally, diminished lung sounds (posterior but coarse anterior) and rhonchi (anterior) upper bilaterally Cardio Jugular venous pressure: no JVD Rhythm: regular rhythm Heart Sounds: S1 normal and S2 normal Pulses: radial pulses present and dorsalis pedis present GI Inspection: scaphoid Palpation: soft and nontender Auscultation: normal bowel sounds General: No CVA tenderness Skin Lesions: lesion noted (to arms: purple looking small lesions to arms) Neuro General: patient alert, patient awake and patient oriented x3 Psych Mental Status: mental status grossly normal Mood: congruent mood Attitude: cooperative Thought Process: normal Insight: insight good Judgment: judgment good Objective Last Vital Signs Temp 97.3 F L 08/05/21 14:52 Pulse 80 08/05/21 14:52 Resp 20 08/05/21 14:52 BP 114/66 08/05/21 14:52 Pulse Ox 90 L 08/05/21 15:13 Laboratory Results - last 24 hr 08/02/21 08/04/21 08/04/21 11:29 06:30 06:30 WBC RBC Hgb Hct MCV MCH MCHC RDW Plt Count MPV Immature Gran % Neutrophils % Lymphocytes % Monocytes % Eosinophils % Basophils % Nucleated RBC % Absolute Neutrophils Absolute Lymphocytes Absolute Monocytes Absolute Eosinophils Absolute Basophils ABG Sample Site Cancelled ABG pH Cancelled ABG pCO2 Cancelled ABG pO2 Cancelled ABG HCO3 Cancelled ABG Total CO2 Cancelled ABG O2 Saturation Cancelled ABG Base Excess Cancelled Oxygen Liter Flow Cancelled FiO2 Cancelled Sodium Potassium Chloride Carbon Dioxide Anion Gap BUN Creatinine Estimated GFR/1.73 m2 Glucose Calcium Magnesium Troponin I 586 H* Add-On Test Request DONE 08/05/21 08/05/21 06:02 06:02 WBC 12.74 H RBC 3.84 L Hgb 9.8 L Hct 32.0 L MCV 83 MCH 25.5 L MCHC 30.6 L RDW 17.0 H Plt Count 281 MPV 11.5 H Immature Gran % 0.7 Neutrophils % 85.2 Lymphocytes % 6.6 Monocytes % 7.2 Eosinophils % 0.2 Basophils % 0.1 Nucleated RBC % 0.0 Absolute Neutrophils 10.85 H Absolute Lymphocytes 0.84 L Absolute Monocytes 0.92 H Absolute Eosinophils 0.03 Absolute Basophils 0.01 ABG Sample Site ABG pH ABG pCO2 ABG pO2 ABG HCO3 ABG Total CO2 ABG O2 Saturation ABG Base Excess Oxygen Liter Flow FiO2 Sodium 141 Potassium 3.4 L Chloride 103 Carbon Dioxide 32.0 Anion Gap 6.0 BUN 11 Creatinine 0.6 L Estimated GFR/1.73 m2 >= 60.00 Glucose 84 Calcium 8.5 Magnesium 2.0 Troponin I Add-On Test Request
[2021-08-05] MEDS: cefTRIAXone 1 GM/50 ML BAG IVPB (21:17)
[2021-08-05 23:30] VITALS: BP 115/64; PULSE 75; RESP 20; TEMP 36.5; O2SAT 95
[2021-08-06] VITALS (8 sets, daily range): BP systolic 118–174; BP diastolic 66–84; PULSE 67–110; RESP 8–25; TEMP 34–36.5; O2SAT 85–97
--- NOTE | 2021-08-06 | DI.MRI_ITS ---
Exam(s) MR BRAIN WO EXAM: MR BRAIN WO CLINICAL HISTORY: r/o brain mets, TECHNIQUE: Multiplanar multisequence MRI of the brain was performed. COMPARISON: MR MR BRAIN WO/W from 01/05/2021 MR MR BRAIN WO/W from 05/12/[address] HEAD WO from 08/02/2021 . FINDINGS: CEREBRAL PARENCHYMA: There is no evidence of intracranial hemorrhage, mass effect, or shift of midline structures. There are no extra-axial fluid collections. Ventricles are not enlarged or shifted. In the right cerebellar hemisphere inferior aspect there is again noted evidence of prior non recent infarct. Left cerebellar hemispheres unremarkable. The previously described there is of signal abnormality in the left frontal and high left parietal lo bes are unchanged. The main new finding is in the left side of the midbrain at the level of the left cerebral peduncle w here there is significant signal abnormality on FLAIR and T2 imaging and with some restricted diffusi on at this level and extending up towards the left thalamus. PITUITARY GLAND: No mass nor parasellar abnormality. No obvious abnormality in the cavernous sinuses. FLOW VOIDS: The expected flow void are noted. No evidence of obvious aneurysm nor obvious vascular ma lformation. PARANASAL SINUSES: The visualized paranasal sinuses appear unremarkable. No obvious finding ORBITS: No obvious findings. IMPRESSION: In addition to the previously described findings, the main new finding here is abnormal signal extend ing up from the left pontomesencephalic junction up through the outer aspect of the left mesencephalo n/midbrain towards the ipsilateral left thalamus. This also exhibits restricted diffusion on DWI and may be ischemic. Discussed with the hospitalist 08/06/2021 3:20 p.m. DATA REPOSITORY:
[2021-08-06] MEDS: fentaNYL 100 MCG/2 ML VIAL 50 MCG IVP ×5 (01:57→23:15)
[2021-08-06] MEDS: Normal Saline Flush 10 ML SYR IVP ×5 (01:58→23:16)
[2021-08-06] MEDS: metroNIDAZOLE 500 MG/100 ML BAG 100 MG IVPB (05:40)
[2021-08-06 05:57] LABS: Absolute Basophil Count 0.02 10^3/uL (0.0-0.2); Absolute Lymphocyte Count 1.09 10^3/uL (1.2-3.4); Absolute Monocyte Count 1.23 10^3/uL (0.1-0.8); Absolute Neutrophil Count 9.68 10^3/uL (1.2-6.7); Basophils % 0.2; Eosinophils % 0.2; HCT 33.8 % (40.0-50.0); HGB 10.3 g/dL (13.5-17.5); Immature Grans % 0.8; MCH 25.5 pg (27.0-33.0); MCHC 30.5 % (32.0-36.0); MCV 84 fL (80-95); MPV 10.9 fL (8.0-11.0); Monocytes % 10.1; Neutrophils % 79.7; Platelet Count 309 10^3/uL (130-400); RBC 4.04 10^6/uL (4.36-5.78); RDW 16.9 % (11.8-14.1); RDW-SD 51.8 fL; WBC 12.15 10^3/uL (4.4-10.8)
[2021-08-06 06:07] LABS: Absolute Eosinophil Count 0.02 10^3/uL (0.0-0.7)
[2021-08-06] MEDS: Albuterol/Ipratropium 3 ML UPD VIAL UPD ×3 (08:05→20:32)
[2021-08-06] MEDS: Budesonide/Formoterol 80/4.5 6.9 GM 60 PUFF INH IH ×2 (08:12→20:37)
[2021-08-06] MEDS: Methadone Liquid 10 MG/ML 119 MG PO (09:14)
[2021-08-06] MEDS: Polyethylene Glycol 3350 17 GM PACKET PO ×2 (09:17→20:32)
[2021-08-06] MEDS: Gabapentin 100 MG CAP PO ×3 (09:18→20:32)
[2021-08-06] MEDS: Acetaminophen 500 MG TAB 1000 MG PO ×3 (09:18→23:16)
[2021-08-06] MEDS: predniSONE 20 MG TAB 40 MG PO (09:18)
[2021-08-06] MEDS: Omeprazole 20 MG CAPCR PO (09:18)
--- NOTE | 2021-08-06 10:14 | PDOC.CMPRO ---
- If Service Date Differs Date of service: 08/06/21 Time of Service: 10:14 Care Management Progress Note S/O: Robles was sitting up in his chair when CM met with him. He stated that he is feeling better today. Per report, he has weaned down to 5L O2, nasal canula. CM discussed his home O2, and he stated that he has a concentrator that was given to him, but it is not managed by Laureen/Lynne. CM also discussed HH services, which he stated that he is agreeable to, if they are recommended at discharge. CM will continue to follow. A: Robles is a 70 year old male admitted to [facility] on 08/02/21 for PNA, rib fractures, COPD. P: Robles will return home when medically cleared. He may benefit from new HH services upon discharge. His s/o, Garima will drive him home. He will follow up with Palliative care, his PCP and discharge plan of care. CM will continue to support discharge planning considerations.
--- NOTE | 2021-08-06 11:26 | PHA.REVIEW ---
Pharmacy Admission Review - Admission Clinical Review (Last Reviewed 08/05/21 @ 09:30 by Della Thakur NP) Constipation (Acute) Dysphagia (Acute) Palliative care patient (Acute) DNR (do not resuscitate) (Acute) Acute exacerbation of chronic obstructive pulmonary disease (COPD) (Acute) Discharge planning issues (Acute) DVT prophylaxis (Acute) Acute pain (Acute) Elevated troponin (Acute) Acute respiratory failure with hypoxia and hypercapnia (Acute) Aspiration pneumonia (Acute) Multiple rib fractures (Acute) Non-ST elevation [place] (NSTEMI) (Acute) Fall (Acute) Pneumonia (Acute) gadoterate meglumine [From Dotarem] Allergy (Mild, Verified 08/02/21 11:17) Skin Rash Penicillins Allergy (Unverified 08/02/21 11:17) Resuscitation Status DNR/DNI Height 5 ft 8 in Weight 96.8 kg - Renal Dosing Renal Dosing: BUN 11 mg/dL (7-18) 08/05/21 06:02 Creatinine 0.6 mg/dL (0.70-1.30) L 08/05/21 06:02 Medications needing adjustments: Reviewed (Crcl over 120 mL/min using adjusted body weight, current meds okay) - Anticoagulation Anticoagulation: Hgb 10.3 g/dL (13.5-17.5) L 08/06/21 05:28 Hct 33.8 % (40.0-50.0) L 08/06/21 05:28 Plt Count 309 10^3/uL (130-400) 08/06/21 05:28 INR 1.1 (0.9-1.1) 08/02/21 10:45 Creatinine 0.6 mg/dL (0.70-1.30) L 08/05/21 06:02 DVT Prophylaxis: Reviewed (SCDs ordered, no pharmacologic prophylaxsis per progress note) Therapeutic Anticoagulation: N/A - Opiate Usage Evaluate Pain Scale/Pains Meds: Reviewed (BM regimen adjusted yesterday as no BMs have been documented since admission) Scheduled Bowel Reg ordered if on Opiates?: Yes - Relevant Labs Sodium 141 mmol/L (136-145) 08/05/21 06:02 Potassium 3.4 mmol/L (3.5-5.1) L 08/05/21 06:02 Chloride 103 mmol/L (98-107) 08/05/21 06:02 Magnesium 2.0 mg/dL (1.8-2.4) 08/05/21 06:02 Electrolytes, C-Reactive P, ESR: Reviewed (K+ was a little low yesterday. No replacement given, will mention to provider) - DM Control DM Control: Glucose 84 mg/dL (74-106) 08/05/21 06:02 Insulin Dosing: N/A - Heart Failure/NJ Heart Failure/NJ: Troponin I 586 ng/L (<or=60) H* 08/04/21 06:30 NT-Pro-B Natriuret Pep 1294 pg/mL (<300) H 08/02/21 10:45 EF%, JANE's, B-Blockers, Diuretics: Reviewed - BP Control BP Control: Blood Pressure 174/84 Blood Pressure 115/64 If elevated: Reviewed (BP has been a bit elevated in the morning the past couple of days but within normal limits later on.) - Qtc Review If Elevated: Reviewed (QTc was 495 on admission, pt is on methadone) - IV to PO Switch IV Medications: Reviewed - Home Meds Home Med List reviewed: Reviewed Relevent Home Meds Not ordered & why?: aspirin, fluticasone/umeclidinium/vilanterol inhaler and ipratropium inhaler (has budesonide/formoterol and albuterol/ipratropium order on this admission), nitroglycerin (PRN) - Current meds Current Medication Order Review: Reviewed - Comments Comments/Follow Ups: Watch BP, K+, labs and for med changes (possible need of additional BM meds, avoid additional QT prolonging meds). Antibiotic Activity - Pharmacy Antibiotic Review Pharmacy Antibiotic Activity: Reviewed, no change (Ceftriaxone and metronidazole ordered for aspiration pnuemonia (day 5).)
--- NOTE | 2021-08-06 11:46 | STREC_ITS ---
Date of service: 08/06/21 Time of Service: 10:46 Speech Therapy Recommendations Report ST Recommendations: Speech - Language Pathology Non-Treatment Note - Inpatient Swallowing Interim updates: Attempting to facilitate MBSS this date as patient is no longer requiring high- flow oxygen and would be more mobile for transfer to , but DI is unable to complete this date. Patient is likely to be discharged today or this weekend, per MD. If not, may consider trying to schedule MBSS again early next week Monday as scheduling allows. Per nursing, patient continues to tolerate Level 5 minced/moist diet and thin liquids with good adherence to safe swallow strategies independently. He continues to make progress weaning down supplemental oxygen. He is especially diligent with oral care. Per Palliative consult on 08/05/21, COLST completed today, DNR/I/T, limited intervention SUMMARY / RECOMMENDATIONS - SPEECH-LANGUAGE PATHOLOGY Suspect continues with moderate oral-pharyngeal dysphagia at baseline, further complicated by poor respiratory status (COPD) and poor respiratory/swallowing coordination,history of GERD, and deconditioning likely in setting of limited PO intake and brain metastases, and evidenced by recent hx aspiration PNA. Patient's diet tolerance improved during course of hospitalization as his respiratory status improved. Risk of aspiration-related pulmonary complications remains high but likely to be mitigated by increased frequency of oral care and adherence to aspiration precautions and swallowing strategies as detailed below. Patient has been very receptive to education and training provided this hospitalization. Discharge recommendations: - Pending patient goals of care (?palliative), recommend [facility] services via home health to continue to address safe swallowing education and training and ensure continuity of care, updated diet recommendations, etc. - If not completed prior to discharge, recommend MD place outpatient MBSS orders if patient is agreeable. DIET RECOMMENDATIONS: Diet:?5-Minced & Moist (Mechancially Altered/Ground). Liquids:?0-Thin Liquids Other:?Monitor for overt s.s aspiration (cough, throat clear, wet vocal quality), continue guided conversation re: dysphagia with palliative approach / involvement of care partners Medications:?One at a time in tsp puree. For large pills, crush as able in tsp puree. Alter medications only as advised by MD/Pharmacy. ORAL CARE:? Q4 and before & after PO intake using friction with a soft bristle toothbrush or oral sponge of all oral tissues. For water only, oral care BEFORE intake is sufficient. RISK MITIGATION: Fully upright for all PO intake. Encourage physical mobility as tolerated. No TV or distractions during meals, reduce conversation as able. ? Level of Assistance/Supervision: Distant/Intermittent supervision for all PO intake?to ensure tolerance and maintenance of vitals during meals. PO intake only when awake/alert? ? Strategies/Adaptations/Assistive Equipment: Very small sips & bites. Slow rate of intake. Clear throat and re-swallow after sips of liquid. ? Posture/Positioning Needs: Maintain upright position at least 30 minutes after meals, Avoid meals/snacks 2- 3 hours prior to reclining/sleeping, Sleep with head of bed elevated to reduce likelihood of nocturnal reflux Thank you for the opportunity to participate in this patient's care. Megan Bernard M.S., [facility] [phone] Coding
--- NOTE | 2021-08-06 12:57 | PGE_ITS ---
Date of Service Date of service: 08/06/21 Time of Service: 12:59 Assessment and Plan Assessment and plan (1) Acute respiratory failure with hypoxia and hypercapnia: Start date: 08/06/21 Start time: : Status: Acute Assessment and plan: Multifactorial - due to aspiration pneumonia, acute exacerbation of COPD, rib fx causing atelectasis improving, no longer guarding, feeling better, would like to go home Switch antbx to oral clindamycin d/t PCN allergy. Pt states he feels more comfortable taking pill Encourage IS. pain controlled - gabapentin added. Continue prednisone. O2 was weaned down from high srinivasan to humid oxygen Exercise oximetry tomorrow. Possible tomorrow (2) Aspiration pneumonia: Start date: 08/06/21 Start time: : Status: Acute Assessment and plan: Present on admission. As above speech therapy recommended advancing diet today to minced/moist/thin. (3) Acute exacerbation of chronic obstructive pulmonary disease (COPD): Start date: 08/06/21 Start time: : Status: Resolved Assessment and plan: As above Continue abx,prednisone, scheduled/prn nebs, symbicort. Pulmonary toileting. Wean O2 as tolerated. 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 He was due for an outpatient MRI of the brain. Will obtain MRI today as oxygen requirements have decreased (6) Elevated troponin: Start date: 08/06/21 Start time: : Status: Acute Assessment and plan: Suspect this is demand due to oxygen. Not a candidate for intervention given brain metastases and overall prognosis. 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 Palliative care and hospice are consulted. (7) Acute pain: Start date: 08/06/21 Start time: : Status: Resolved Assessment and plan: Improved Continue scheduled tylenol, methadone, lidocaine patch. Add gabapentin. Consider rib block (8) Multiple rib fractures: Start date: 08/06/21 Start time: 13:22 Status: Acute Assessment and plan: IS Pain control as above (9) Dysphagia: Start date: 08/06/21 Start time: Status: Chronic Assessment and plan: Seen by speech therapy. minced/moist diet with thin liquids. Tolerating diet (10) Fall: Start date: 08/06/21 Start time: Status: Acute Assessment and plan: Continue to work with PT (11) DVT prophylaxis: Start date: 08/06/21 Start time: Status: Acute Assessment and plan: SCDs (12) Discharge planning issues: Start date: 08/06/21 Start time: Status: Acute Assessment and plan: DNR/DNI Palliative consulted continue to follow likely home tomorrow discussed with DR. De Leon Subjective Subjective Patient reports: no new complaints Interval history since last seen: Sitting up in chair, no new complaints, off high flow oxygen, no on humidified oxygen, exercise oximetry and switch to oral antibiotic. Will have to change to clindamycin d/t PCN allergy. Exam Narrative Exam Narrative: sitting up in chair having lunch, completing full sentences during interaction cooperative, pleasant, engaged Const General: comfortable, no acute distress and ill appearing Nutritional Appearance: cachectic Orientation: alert, awake and oriented x3 HENMT Head: normocephalic and atraumatic Ears: hearing grossly normal bilaterally Other: swallows liquids appropriately, no coughing or gurgling Eyes General: appearance normal, both eyes and all related structures Neck Neck: no anterior neck swelling Chest Chest: other (Cachectic) Resp Effort & Inspection: normal respiratory effort and able to speak in complete sentences Auscultation: clear to auscultation bilaterally and diminished lung sounds Cardio Jugular venous pressure: no JVD Rhythm: regular rhythm Heart Sounds: S1 normal and S2 normal Pulses: radial pulses present and dorsalis pedis present GI Inspection: scaphoid Palpation: soft and nontender Auscultation: normal bowel sounds General: No CVA tenderness Skin Lesions: lesion noted (to arms: purple looking small lesions to arms) Neuro General: patient alert, patient awake and patient oriented x3 Psych Mental Status: mental status grossly normal Mood: congruent mood Attitude: cooperative Thought Process: normal Insight: insight good Judgment: judgment good Objective Last Vital Signs Temp 36.5 C 08/06/21 07:22 Pulse 67 08/06/21 07:22 Resp 22 08/06/21 07:22 BP 174/84 H 08/06/21 07:22 Pulse Ox 97 08/06/21 07:22 Laboratory Results - last 24 hr 08/06/21 05:28 WBC 12.15 H RBC 4.04 L Hgb 10.3 L Hct 33.8 L MCV 84 MCH 25.5 L MCHC 30.5 L RDW 16.9 H Plt Count 309 MPV 10.9 Immature Gran % 0.8 Neutrophils % 79.7 Lymphocytes % 9.0 Monocytes % 10.1 Eosinophils % 0.2 Basophils % 0.2 Nucleated RBC % 0.0 Absolute Neutrophils 9.68 H Absolute Lymphocytes 1.09 L Absolute Monocytes 1.23 H Absolute Eosinophils 0.02 Absolute Basophils 0.02
[2021-08-06] MEDS: Clindamycin 150 MG CAP 450 MG PO ×2 (13:47→20:32)
[2021-08-06] MEDS: Potassium Chloride 20 MEQ TABCR 40 MEQ PO (13:47)
[2021-08-06] MEDS: Lidocaine 5% Patch 1 PATCH TP (17:08)
[2021-08-07] MEDS: Albuterol/Ipratropium 3 ML UPD VIAL UPD ×3 (02:56→13:41)
[2021-08-07] MEDS: Normal Saline Flush 10 ML SYR IVP ×2 (03:49→13:57)
[2021-08-07] MEDS: fentaNYL 100 MCG/2 ML VIAL 50 MCG IVP ×2 (03:49→13:56)
[2021-08-07 06:30] LABS: Abs Immature Grans 0.08 10^3/uL (0.0-0.06); Absolute Basophil Count 0.02 10^3/uL (0.0-0.2); Absolute Eosinophil Count 0.04 10^3/uL (0.0-0.7); Absolute Lymphocyte Count 1.47 10^3/uL (1.2-3.4); Absolute Monocyte Count 1.39 10^3/uL (0.1-0.8); Absolute Neutrophil Count 6.62 10^3/uL (1.2-6.7); Basophils % 0.2; Eosinophils % 0.4; HGB 11.5 g/dL (13.5-17.5); Immature Grans % 0.8; Lymphocytes % 15.3; MCH 25.3 pg (27.0-33.0); MCHC 30.3 % (32.0-36.0); MCV 84 fL (80-95); MPV 10.4 fL (8.0-11.0); Monocytes % 14.4; Neutrophils % 68.9; Platelet Count 348 10^3/uL (130-400); RBC 4.55 10^6/uL (4.36-5.78); RDW 16.7 % (11.8-14.1); RDW-SD 51.1 fL; WBC 9.62 10^3/uL (4.4-10.8)
[2021-08-07 06:41] LABS: Anion Gap 2.9 mmol/L (3-11); BUN 8 mg/dL (7-18); CO2 36.1 mmol/L (21.0-32.0); CREATININE 0.6 mg/dL (0.70-1.30); Calcium 9.2 mg/dL (8.5-10.1); Chloride 103 mmol/L (98-107); Glucose 92 mg/dL (74-106); Potassium 3.9 mmol/L (3.5-5.1); Sodium 142 mmol/L (136-145)
[2021-08-07] MEDS: Methadone Liquid 10 MG/ML 119 MG PO (07:44)
[2021-08-07 07:51] VITALS: BP 147/84; PULSE 104; RESP 20; TEMP 36.1; O2SAT 91
[2021-08-07 09:00] VITALS: RESP 8
[2021-08-07] MEDS: Budesonide/Formoterol 80/4.5 6.9 GM 60 PUFF INH IH (09:05)
[2021-08-07 09:16] VITALS: RESP 8
[2021-08-07] MEDS: Polyethylene Glycol 3350 17 GM PACKET PO (09:23)
[2021-08-07] MEDS: Omeprazole 20 MG CAPCR PO (09:23)
[2021-08-07] MEDS: Acetaminophen 500 MG TAB 1000 MG PO (09:23)
[2021-08-07] MEDS: predniSONE 20 MG TAB 40 MG PO (09:24)
[2021-08-07] MEDS: Clindamycin 150 MG CAP 450 MG PO ×2 (09:25→13:56)
[2021-08-07] MEDS: Gabapentin 100 MG CAP PO ×2 (09:26→13:56)
--- NOTE | 2021-08-07 12:18 | W.PM.DS.N ---
Date of service: 08/07/21 Time of Service: 12:19 DS: Diagnosis Discharge Diagnosis (1) COPD with respiratory distress, acute: Start date: 08/07/21 Start time: 12:19 Status: Acute Asessment and Plan: Multifactorial - due to aspiration pneumonia, acute on chronic COPD exacerbation, rib fx causing atelectasis improving, no longer guarding, feeling better, would like to go home Switched antbx to oral clindamycin d/t PCN allergy. WBC has normalized he has been weaned down to 3 L oxygen at rest and with ambulation. He has been set up with oxygen for home, along with services therefore he is being discharged home (2) Acute respiratory failure with hypoxia and hypercapnia: Start date: 08/07/21 Start time: 12:19 Status: Resolved Asessment and Plan: Improved as above (3) Aspiration pneumonia: Start date: 08/07/21 Start time: 12:19 Status: Acute Asessment and Plan: as above will continue clindamycin for 3 more days speech therapy recommended minced/moist/thin. Recommend continuing this diet. 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 Not a candidate for intervention given brain metastases and overall prognosis. Trops started to drop down (7) Acute pain: Start date: 08/07/21 Start time: 12:19 Status: Resolved Asessment and Plan: Given tylenol methadone, gabapentin lidocaine (8) Multiple rib fractures: Start date: 08/07/21 Start time: 12:19 Status: Acute Asessment and Plan: as above discussed with Dr. De Leon Discharge Plan Disposition Patient Disposition: HOME W/HOME HEALTH SERVICE Condition: Serious Discharge Details Reason For Visit: Pneumonia,Rib fractures,COPD Admit Date/Time: 08/02/21 19:42 Admit Provider: Erich Middleton Attending Provider: Erich Middleton Primary Care Provider: Unknown,Unknown Home Meds and New Rx's Prescriptions: New acetaminophen 500 mg Tablet 1,000 mg PO TID Qty: 90 0RF clindamycin HCl 150 mg Capsule 450 mg PO TID Qty: 3 0RF gabapentin 100 mg Capsule 300 mg PO TID Qty: 30 0RF oxycodone 5 mg Tablet 5 mg PO Q4H PRN PRNQty: 20 0RF prednisone 20 mg Tablet 40 mg PO DAILY Qty: 6 0RF Rx Instructions: Take for 3 more days lidocaine 5 % adhesive patch,medicated 1 patch topical DAILY Qty: 30 0RF Rx Instructions: leave on most painful area for up to 12 hrs Continued nitroglycerin 0.3 mg Tablet, Sublingual 0.3 mg sublingual PRN PRN albuterol sulfate 1.25 mg/3 mL Solution For Nebulization 1.25 mg DAILY aspirin 81 mg Tablet,Delayed Release (Dr/Ec) 81 mg DAILY ipratropium bromide 0.02 % Solution 3 ml DAILY Trelegy Ellipta 100-62.5-25 mcg Blister With Device 1 inh INHALATION DAILY methadone [Methadone Intensol] 10 mg/mL Concentrate 110 mg PO DAILY omeprazole magnesium [Prilosec OTC] 20 mg Tablet,Delayed Release (Dr/Ec) 20 mg PO DAILY Discharge Instructions Instructions: Lidocaine Patch (On the skin), Rib Fracture (DC), Pain Management (DC), Using Oxygen at Home (DC), Brain Metastasis (DC), Hypoxia (GEN) Additional Instructions: Follow up with PCP and oncology Use oxygen at all times Take antibiotic for three more days Take prednisone for three more days Stand Alone Forms: Nursing Discharge Form Referrals: Raine Blair [Other] (Office should call you with appointment. If you do not hear from them please call them to make appointment.) Ozzie Calderón MD [ [facility] STAFF PHYSICIAN] - 08/20/21 10:30 am Activity:: Activity as Tolerated Equipment/Supplies:: 3 Diet:: minced/moist/thin Discharge Orders Discharge Orders: Discharge Order (Routine); Ordered 08/07/21 Ordered By: Leigh Grider DS: Summary Time Spent with Patient providing and/or coordinating discharge services: Greater than 30 minutes Status at Discharge Functional status at discharge: uses cane/walker Overall status at discharge: patient is progressing back to baseline Mental Status: mental status grossly normal Speech and Movement: speech and movement normal Mood: congruent mood Affect: normal affect Exam Narrative Exam Narrative: sitting up in chair having lunch, completing full sentences during interaction cooperative, pleasant, engaged Const General: comfortable, no acute distress and ill appearing Nutritional Appearance: cachectic Orientation: alert, awake and oriented x3 HENMT Head: normocephalic and atraumatic Ears: hearing grossly normal bilaterally Other: swallows liquids appropriately, no coughing or gurgling Eyes General: appearance normal, both eyes and all related structures Neck Neck: no anterior neck swelling Chest Chest: other (Cachectic) Resp Effort & Inspection: normal respiratory effort and able to speak in complete sentences Auscultation: clear to auscultation bilaterally and diminished lung sounds Cardio Jugular venous pressure: no JVD Rhythm: regular rhythm Heart Sounds: S1 normal and S2 normal Pulses: radial pulses present and dorsalis pedis present GI Inspection: scaphoid Palpation: soft and nontender Auscultation: normal bowel sounds General: No CVA tenderness Skin Lesions: lesion noted (to arms: purple looking small lesions to arms) Neuro General: patient alert, patient awake and patient oriented x3 Psych Mental Status: mental status grossly normal Speech and Movement: speech and movement normal Mood: congruent mood Affect: normal affect Attitude: cooperative Thought Process: normal Insight: insight good Judgment: judgment good DS: Data Vitals/I&O Vitals and I&O: Vital Signs Temperature 36.1 C L 08/07/21 07:51 Temperature Source Tympanic 08/07/21 07:51 Pulse 104 H 08/07/21 07:51 Pulse Rhythm Regular 08/07/21 03:57 Pulse 83 08/02/21 20:20 Respiratory Rate 20 08/07/21 07:51 Respiratory Effort Non-Labored 08/07/21 03:57 Respiratory Depth Normal 08/07/21 03:57 Respiratory Pattern Normal 08/07/21 03:57 Blood Pressure 147/84 H 08/07/21 07:51 Blood Pressure Mean 65 08/02/21 20:15 Blood Pressure Position Supine 08/02/21 10:33 Pulse Oximetry 91 L 08/07/21 07:51 Oxygen Delivery Method Nasal Cannula 08/07/21 07:51 Oxygen Flow Rate 2 08/06/21 23:21 Fraction of Inspired Oxygen (FIO2) 21 08/06/21 08:10 Pain Level 7 08/07/21 07:51 Comment 08/02/21 10:33 Intake & Output 08/06/21 08/07/21 08/07/21 23:59 11:59 23:59 Intake Total 1090 / 1670 600 / 600 Output Total 1500 / 2725 1150 / 1150 Balance -410 / -1055 -550 / -550 Intake: IV 100 / 200 Oral 990 / 1470 600 / 600 Output: Urine 1500 / 2725 1150 / 1150 Other: Urine Color Pale Pale Yellow Urine Appearance Cloudy Clear Urine Odor Normal Normal Stool Size Small Stool Characteristics Hard Voiding Methods Urinal Urinal Data Completed and Pending Completed studies during hospitalization [Text1]: IMPRESSION: No acute intracranial findings on this noninfused CT scan of the brain. No evidence of intracranial hemorrhage (trauma history).? Other known findings as seen on recent MRI are stable. IMPRESSION: 1. No evidence of an acute intracranial abnormality. No significant change compared to MRI performed 05/12/2021 2. There is moderate age-related atrophy and chronic white matter ischemic changes, with compensatory ventricular dilation. 3. Low-attenuation lesions seen within the left frontal parietal lobe measuring approximately 16 mm in diameter unchanged compared to the MRI performed 05/12/2021. Additional low-attenuation lesions seen within the high left parietal lobe measuring 12.3 mm unchanged compared to the MRI performed 05/12/2021. 4. Low-attenuation lesions seen within the right cerebellum also appears unchanged and measures approximately 4.8 mm. 5. No significant mass effect associated with these lesions . These lesions appear to lie within the white matter. IMPRESSION: In addition to the previously described findings, the main new finding here is abnormal signal extending up from the left pontomesencephalic junction up through the outer aspect of the left mesencephalon/midbrain towards the ipsilateral left thalamus.? This also exhibits restricted diffusion on DWI and may be ischemic. Discussed with the hospitalist 08/06/2021 3:20 p.m. . Labs on day of discharge: Labs from last 24 hours 08/07/21 08/07/21 06:20 06:20 WBC 9.62 RBC 4.55 Hgb 11.5 L Hct 38.0 L MCV 84 MCH 25.3 L MCHC 30.3 L RDW 16.7 H Plt Count 348 MPV 10.4 Immature Gran % 0.8 Neutrophils % 68.9 Lymphocytes % 15.3 Monocytes % 14.4 Eosinophils % 0.4 Basophils % 0.2 Nucleated RBC % 0.0 Absolute Neutrophils 6.62 Absolute Lymphocytes 1.47 Absolute Monocytes 1.39 H Absolute Eosinophils 0.04 Absolute Basophils 0.02 Sodium 142 Potassium 3.9 Chloride 103 Carbon Dioxide 36.1 H Anion Gap 2.9 L BUN 8 Creatinine 0.6 L Estimated GFR/1.73 m2 >= 60.00 Glucose 92 Calcium 9.2 PFSH All Active Problems Brain metastases (Acute) COPD with respiratory distress, acute (Acute) Constipation (Acute) Dysphagia (Acute) Palliative care patient (Acute) DNR (do not resuscitate) (Acute) Discharge planning issues (Acute) DVT prophylaxis (Acute) Dysphagia (Chronic) Elevated troponin (Acute) Aspiration pneumonia (Acute) Multiple rib fractures (Acute) Non-ST elevation [place] (NSTEMI) (Acute) Fall (Acute) Pneumonia (Acute) Medical History Ocular lymphoma Social History Smoking/Tobacco Use Status: Current every day Tobacco Type: cigarettes Smoking risk assessment performed?: Yes Alcohol Intake: never Drug use: Never Substance use type: does not use Do you feel safe at home: Yes Do you feel safe in your relationship?: Yes
[2021-08-07 13:41] VITALS: RESP 8
--- NOTE | 2021-08-07 13:52 | PDOC.HHF2F_ITS ---
Home Health Certification Home Health Certification: 1. Encounter Date and Reason I certify that Robles Cruz was seen by Leigh Grider on 08/07/21 and that I had a fali-ci-oscx encounter with this patient that meets the physician face to face encounter requirements. 2. Clinical Findings Supporting Skilled Need and Homebound Status I certify that home health services are medically necessary, include either intermittent nursing home and/or physical/speech therapy, and that this patient is homebound in that absences from the home require considerable and taxing effort and are infrequent or of short duration, or are attributable to the need to receive medical care. [X] (a) Attached documentation from encounter provides clinical findings supporting skilled need and homebound status (including what assistance patient requires to leave the home). The encounter with the patient was in whole, or in part, for the following medical condition, which is the primary reason for home health care: Pneumonia,Rib fractures,COPD Halfway: Patient would benefit from nursing for medication administration, oxygen management, adls, Physical Therapy: Patient would benefit from PT for gait stability and balance Speech Therapy: Patient would benefit from f/u with speech to monitor for aspiratoin BILINGUAL ACCOUNT MANAGER: patient would benefit from community services Homebound: Unable to leave home without assistance 3. Certification and Authentication I certify that I composed the above information based on my clinical judgement relating to this patient's medical condition and, if applicable, clinical findings communicated to me by the NPP or inpatient physician who performed the Home Health Referral. All further orders will be obtained through ___unknown___(Community Based Physician - PCP)
--- NOTE | 2021-08-07 16:58 | CMDISCH_ITS ---
- If Service Date Differs Date of service: 08/07/21 Time of Service: 16:58 LACE Index Scoring Tool - Questions: Length of Stay (in days): 4 - 6 Acuity (Admit via E.D.?): Yes Comorbidities: Previous M.I., Chronic Pulmonary Disease E.D. Visits: 2 - Answers: Total Score: 12 Risk of Readmission: High Risk Care Management Discharge Reason for Hospitalization: Pneumonia, rib fractures, COPD Discharge Plan: Robles returned home with new orders for HH RN, PT, OT, [employer]. He had new home O2 through [facility], coordinated by RT. He was driven home via private vehicle by his S/O, Garima. He will follow up with his PCP and discharge plan of care. He was happy to be going home. Patient/Family Education Needs: Review discharge instructions and limitations, discussion of self care needs including ask me three. Services Needed at Discharge: Home Health Care Services
== END 2021-08-07 14:58 | disposition home health service (06) | DRG 177 ==
LOC: ER 20:44 → MS 21:13
PROVIDERS: Family Medicine; Internal Medicine; Nurse Practitioner Family; Physician Assistant; Admitting Provider General Practice; Emergency Provider Physician Assistant; Visit Provider General Practice
DX: J69.0 Pneumonitis due to inhalation of food and vomit (principal); J96.01 Acute respiratory failure with hypoxia; J96.02 Acute respiratory failure with hypercapnia; S22.41XA Multiple fractures of ribs, right side, initial encounter for closed fracture; C85.99 Non-Hodgkin lymphoma, unspecified, extranodal and solid organ sites; C79.31 Secondary malignant neoplasm of brain; J44.1 Chronic obstructive pulmonary disease with (acute) exacerbation; I24.8 Other forms of acute ischemic heart disease; J98.11 Atelectasis; Z66 Do not resuscitate; W19.XXXA Unspecified fall, initial encounter; R13.10 Dysphagia, unspecified; F17.210 Nicotine dependence, cigarettes, uncomplicated; K59.00 Constipation, unspecified
CPT/HCPCS: 36415; 64450; 71275; 74177; 80048; 80053; 82550; 82805; 85027; 87637; 92610; 93005; 94618; 94640; 96365; 96368; 96375; 99285; 70450; 70551; 71045; 83615; 83735; 83880; 84484; 85025; 85379; 85610; 85730; 93010; 94660; 99222; 99232; 99233; 99239; J0696; J1956; J2405; J3010; J3490; J7512; J7620; Q9967

== ENCOUNTER 2021-08-23 12:36 | Emergency (ER) | payer MEDICARE, MEDICAID, SELFPAY ==
[2021-08-23 12:37] VITALS: BP 141/53; PULSE 78; RESP 16; TEMP 37.2; O2SAT 94
--- NOTE | 2021-08-23 13:14 | ED.GENADUL_ITS ---
Discharge Plan Disposition Patient Disposition: HOME Condition: Stable Discharge Details Clinical Impression: Skin lesion Primary Care Provider: Leigh Grider ED Provider: Tammy Carlos Home Meds and New Rx's Prescriptions: Continued oxycodone 15 mg tablet 15 mg PO Q6H MDD 75 PRN (Reason: pain) Qty: 65 0RF Rx Instructions: goal of 4 tabs or less per day, provided additional 9 tablets for as needed nighttime dose naloxone [Narcan] 4 mg/actuation spray,non-aerosol 4 mg intranasal Q2M Qty: 2 0RF Rx Instructions: spray 1 dose into ONE nostril; alternate nostrils w each dose until help arrives nitroglycerin 0.3 mg Tablet, Sublingual 0.3 mg sublingual PRN PRN albuterol sulfate 1.25 mg/3 mL Solution For Nebulization 1.25 mg DAILY ipratropium bromide 0.02 % Solution 3 ml DAILY Trelegy Ellipta 100-62.5-25 mcg Blister With Device 1 inh INHALATION DAILY acetaminophen 500 mg Tablet 1,000 mg PO TID Qty: 90 0RF clindamycin HCl 150 mg Capsule 450 mg PO TID Qty: 3 0RF methadone [Methadone Intensol] 10 mg/mL Concentrate 119 mg PO DAILY omeprazole magnesium [Prilosec OTC] 20 mg Tablet,Delayed Release (Dr/Ec) 20 mg PO DAILY Discharge Instructions Instructions: Acute Rash (ED) Additional Instructions: Please return immediately to the emergency department if you develop any new or worsening symptoms, if your condition does not improve as expected, or if you become otherwise concerned. It is extremely important that you call soon as possible to make an appointment to be seen in follow-up for this visit by your primary care doctor. Referrals: Leigh Grider, ERIC [Primary Care Provider] - Discharge Data Discharge Date/Time-TO BE ENTERED AT DEPARTURE: 08/23/21 13:15 Medical Decision Making Robles Cruz is a 70-year-old man with a history of ocular lymphoma with brain metastases, COPD presenting to the emergency department with skin lesion. Patient reports that this morning after showering he noticed a dark yonathan on his right lateral chest and showed his partner. He reports that his partner was and was concerned that he had an embedded tick, and thus patient presented to emergency department. Patient reports that his partner did not try to pull a tick off of him. He reports pain from rib fractures that is chronic and un changed, denies any other pain, has no pain at site of skin lesion. Denies fever, cough, vomiting, other skin rash. Patient reports baseline shortness of breath that is unchanged. He reports that overall he feels well and in his usual state of health. On exam patient is well and nontoxic-appearing. Lesion on right upper lateral chest appears to be black comedone and not tick/tick parts. Patient reports that no tick was seen and there was no attempt to remove a tick, exam/history at this time is not consistent with embedded tick part. Exam/history is not consistent with cellulitis, abscess, sepsis, other acute emergent medical process. Offered extraction to patient, patient states he prefers to go home at this time, states that as long as he does not have a tick biting him he would prefer to be discharged. I had a discussion with Patient regarding return to emergency department precautions, home care, and importance of outpatient follow-up. Pt verbalizes understanding of the plan and is amenable. Patient discharged to home with clear plan for outpatient follow-up. All questions were answered. Disposition decision was made weighing the risks and benefits of hospitalization versus outpatient treatment, the risk for further decompensation, and the patient's wishes. Medical Records Medical records reviewed: Yes I reviewed the patient's medical records. HPI General Mode of arrival: ambulatory . Date/Time Provider Initiated Documentation: 08/23/21 12:43 . Limitations to Documentation: no limitations . Information obtained by: patient, RN notes reviewed and old records reviewed . HPI Narrative: Robles Cruz is a 70-year-old man with a history of ocular lymphoma with brain metastases, COPD presenting to the emergency department with skin lesion. Patient reports that this morning after showering he noticed a dark yonathan on his right lateral chest and showed his partner. He reports that his partner was and was concerned that he had an embedded tick, and thus patient presented to emergency department. Patient reports that his partner did not try to pull a tick off of him. He reports pain from rib fractures that is chronic and unchanged, denies any other pain, has no pain at site of skin lesion. Denies fever, cough, vomiting, other skin rash. Patient reports baseline shortness of breath that is unchanged. He reports that overall he feels well and in his usual state of health. Related Data Home Medications Medication Instructions Recorded Confirmed methadone 10 mg/mL oral 119 mg PO DAILY 05/12/21 08/23/21 concentrate (Methadone Intensol) omeprazole magnesium 20 mg 20 mg PO DAILY 05/12/21 08/23/21 tablet,delayed release (Prilosec OTC) albuterol sulfate 1.25 mg/3 mL 1.25 mg DAILY 08/02/21 08/23/21 solution for nebulization fluticasone fur. 100 mcg-umeclid 1 inh inhalation DAILY 08/02/21 08/23/21 62.5 mcg-vilant 25 mcg inhalat.powder (Trelegy Ellipta) ipratropium bromide 0.02 % 3 ml DAILY 08/02/21 08/23/21 solution for inhalation nitroglycerin 0.3 mg sublingual 0.3 mg sublingual PRN PRN 08/02/21 08/23/21 tablet acetaminophen 500 mg tablet 1,000 mg PO TID #90 tabs 08/07/21 08/23/21 clindamycin HCl 150 mg capsule 450 mg PO TID #3 caps 08/07/21 08/23/21 naloxone 4 mg/actuation nasal 4 mg intranasal Q2M #2 ea 08/18/21 08/23/21 spray (Narcan) oxycodone 15 mg tablet 15 mg PO Q6H PRN pain #65 tabs 08/18/21 08/23/21 Previous Rx's Medication Instructions Recorded acetaminophen 500 mg tablet 1,000 mg PO TID #90 tabs 08/07/21 clindamycin HCl 150 mg capsule 450 mg PO TID #3 caps 08/07/21 naloxone 4 mg/actuation nasal 4 mg intranasal Q2M #2 ea 08/18/21 spray (Narcan) oxycodone 15 mg tablet 15 mg PO Q6H PRN pain #65 tabs 08/18/21 Allergies Allergy/AdvReac Type Severity Reaction Status Date / Time gadoterate meglumine Allergy Mild Skin Rash Verified 08/23/21 12:41 [From Dotarem] Penicillins Allergy Unverified 08/23/21 12:41 General Stated Complaint: RashLesion ARELY: 5 Review of Systems Narrative: Constitutional: denies fevers Eyes: denies eye pain ENT: denies ear pain, dental pain, sore throat Cardiovascular: denies chest pain, edema Respiratory: denies SOB, cough GI: denies abdominal pain, vomiting, diarrhea : denies flank pain MSK: denies back pain, neck pain, arthralgias, myalgias Skin: denies rash, reports skin lesion as per HPI Neuro: denies headaches, numbness, weakness PFSH All Active Problems (Updated 08/23/21 @ 13:07 by Tammy Carlos MD) Skin lesion (Acute) Decreased appetite (Acute) Ocular lymphoma (Acute) Brain metastases (Acute) COPD with respiratory distress, acute (Acute) Dysphagia (Acute) Palliative care patient (Acute) DNR (do not resuscitate) (Acute) Multiple rib fractures (Acute) Medical History Acute respiratory failure with hypoxia and hypercapnia Aspiration pneumonia Ocular lymphoma Social History Smoking/Tobacco Use Status: Current every day Tobacco Type: cigarettes Smoking risk assessment performed?: Yes Alcohol Intake: never Drug use: Never Substance use type: does not use Do you feel safe at home: Yes Do you feel safe in your relationship?: Yes Exam Narrative Exam Narrative: Constitutional: well and [id number], pleasant, conversing normally HENT: head atraumatic/normocephalic/normal inspection, mucous membranes moist Eyes: conjunctiva normal, sclera normal, pupils 3mm b/l Neck: no stridor, normal ROM, trachea midline Chest: 2 mm lesion right upper lateral chest appears to be blocked comedone, no drainage, no surrounding erythema, no edema, nontender to palpation, otherwise normal inspection Resp: normal work of breathing, speaking in full sentences Cardio: normal rate, normal rhythm Back: normal inspection, no rash Skin: warm, dry, normal color, no rash Neuro: alert, not altered, grossly non-focal, normal tone Ext: no edema Psych: normal mood, normal affect, normal behavior Course Vital Signs Vital signs: Vital Signs Temperature 37.2 C 08/23/21 12:37 Pulse 78 08/23/21 12:37 Respiratory Rate 16 08/23/21 12:37 Blood Pressure 141/53 H 08/23/21 12:37 Pulse Oximetry 94 08/23/21 12:37 Temperature 37.2 C 08/23/21 12:37 Temperature Source Temporal Artery Scan 08/23/21 12:37 Pulse 78 08/23/21 12:37 Respiratory Rate 16 08/23/21 12:37 Respiratory Effort 08/23/21 12:40 Blood Pressure 141/53 H 08/23/21 12:37 Blood Pressure Position Sitting 08/23/21 12:37 Pulse Oximetry 94 08/23/21 12:37 Oxygen Delivery Method Room Air 08/23/21 12:37 Oxygen Flow Rate 0 08/23/21 12:37 Pain Level 1 08/23/21 12:37
== END 2021-08-23 13:15 | disposition home or self-care (01) ==
PROVIDERS: Emergency Provider Student in an Organized Health Care Education/Training Program; PCP Nurse Practitioner Family
DX: L98.8 Other specified disorders of the skin and subcutaneous tissue (principal)
CPT/HCPCS: 99281

== ENCOUNTER 2021-09-03 10:50 | Emergency (ER) | payer MEDICARE, MEDICAID, SELFPAY ==
--- NOTE | 2021-09-03 10:52 | ED.GENADUL_ITS ---
Discharge Plan Disposition Patient Disposition: HOME Condition: Stable Discharge Details Clinical Impression: Fall, Palliative care patient, Multiple rib fractures Primary Care Provider: Leigh Grider ED Provider: Mahad Ortiz Home Meds and New Rx's Prescriptions: No Action naloxone [Narcan] 4 mg/actuation spray,non-aerosol 4 mg intranasal Q2M Qty: 2 0RF Rx Instructions: spray 1 dose into ONE nostril; alternate nostrils w each dose until help arrives hydromorphone (PF) 10 mg/mL solution See Rx Instructions subcut Q1H MDD 100 mg PRN (Reason: pain) Qty: 100 0RF Rx Instructions: 2-4 mg sc continuously every 1 hour; 1-2 mg bolus prn pain lorazepam 2 mg/mL concentrate 2 mg sublingual Q4H PRN PRN (Reason: anxiety) Qty: 30 0RF Rx Instructions: 0.5-1 ml q4hr prn HOSPICE scopolamine base 1 mg over 3 days patch 3 day 1 patch transdermal Q3D Qty: 4 0RF nitroglycerin 0.3 mg Tablet, Sublingual 0.3 mg sublingual PRN PRN albuterol sulfate 1.25 mg/3 mL Solution For Nebulization 1.25 mg DAILY ipratropium bromide 0.02 % Solution 3 ml DAILY Trelegy Ellipta 100-62.5-25 mcg Blister With Device 1 inh INHALATION DAILY acetaminophen 500 mg Tablet 1,000 mg PO TID Qty: 90 0RF methadone [Methadone Intensol] 10 mg/mL Concentrate 119 mg PO DAILY omeprazole magnesium [Prilosec OTC] 20 mg Tablet,Delayed Release (Dr/Ec) 20 mg PO DAILY Discharge Instructions Instructions: Rib Fracture (ED), Fall Prevention for Older Adults (ED) Additional Instructions: If you have any new or worsening symptoms please return to the emergency department for reassessment. Otherwise you may also contact the hospice department if you change your mind and want to initiate hospice before Monday. Otherwise it is very important to continue your meeting with your palliative care provider. Take medication as prescribed. Referrals: Della Thakur NP [NURSE PRACTITIONER] - 3 days Discharge Data Discharge Date/Time-TO BE ENTERED AT DEPARTURE: 09/03/21 14:46 Medical Decision Making Patient presenting to the emergency department for chief complaint of fall with injury to right ribs and back. Patient has significant past medical history of ocular lymphoma with brain metastasis. does state that patient has had increased of falls and generalized weakness. Patient denies any head injury or trauma, mental status change, or vision change. Physical exam reveals a thin frail chronically ill-appearing adult with significant tenderness to the right rib and thoracic spine. Difficult to completely isolate pain due to generalized discomfort. Due to this will perform CT imaging of the thorax and spine given patient's history of cancer and level of pain. We will treat patient's pain pending result Upon review of results patient has subacute multiple rib fractures on the right side but no acute fracture is noted. No acute fracture is noted of the thoracic spine as well. Were able to reduce patient's pain and discomfort with interventions. Discussed with patient and consideration of hospice given his overall declining status, frail appearance, and chronic terminal illness. They were agreeable to a consult in the emergency department. vector control assistant came and consult did with family and at that time they stated that they wanted to wait and speak with their palliative care provider which was planning on seeing them on Monday. Patient did just have an increase of pain medication prescribed by palliative care and they were encouraged to use this increased dose as needed for pain control. Close monitoring of symptoms along with return and follow-up precautions were discussed along with reaching out to hospice if they change their mind. After discussion of diagnosis and plan of care patient has no further needs, questions, or concerns and states clear u nderstanding to return to the emergency department for any worsening symptoms. This documentation was generated using [employer] dictation system, please disregard any oddities of phrase or misspellings. Medical Records Medical records reviewed: Yes I reviewed the patient's medical records. Imaging Data Radiologic Study: Imaging: CT Scan Radiologist's impression: IMPRESSION: 1. Subacute fractures involving multiple right ribs. Callus formation has begun to developed about the fracture sites. 2. No acute fracture or subluxation in the thoracic spine. 3. Improvement in the opacities in the lung bases since 08/02/2021. 4. Results of this exam have been verbally communicated with provider. CT thoracic spine recons: No acute fracture or subluxation is present. HPI General Mode of arrival: EMS . Date/Time Provider Initiated Documentation: 09/03/21 11:19 . Limitations to Documentation: no limitations . Information obtained by: patient, family, RN notes reviewed and old records reviewed . History of Present Illness 70 year old M presents to the emergency department with the chief complaint of Fall with rib pain, described as severe and similar to prior episodes, with intensity rated at 10. Quality is described as sharp, and is localized to the chest and right. Patient reports no radiation. Patient started experiencing this hour(s) (1) and it has been constant. No relieving factors improve symptom(s), Movement worsens symptoms . Patient notes malaise; denies nausea/vomiting. Patient did receive the following treatments prior to arrival, none Related Data Home Medications Medication Instructions Recorded Confirmed methadone 10 mg/mL oral 119 mg PO DAILY 05/12/21 09/02/21 concentrate (Methadone Intensol) omeprazole magnesium 20 mg 20 mg PO DAILY 05/12/21 09/02/21 tablet,delayed release (Prilosec OTC) albuterol sulfate 1.25 mg/3 mL 1.25 mg DAILY 08/02/21 09/02/21 solution for nebulization fluticasone fur. 100 mcg-umeclid 1 inh inhalation DAILY 08/02/21 09/02/21 62.5 mcg-vilant 25 mcg inhalat.powder (Trelegy Ellipta) ipratropium bromide 0.02 % 3 ml DAILY 08/02/21 09/02/21 solution for inhalation nitroglycerin 0.3 mg sublingual 0.3 mg sublingual PRN PRN 08/02/21 09/02/21 tablet acetaminophen 500 mg tablet 1,000 mg PO TID #90 tabs 08/07/21 09/02/21 naloxone 4 mg/actuation nasal 4 mg intranasal Q2M #2 ea 08/18/21 09/02/21 spray (Narcan) hydromorphone (PF) 10 mg/mL See Rx Instructions subcut Q1H PRN 09/05/21 injection solution pain #100 mL lorazepam 2 mg/mL oral concentrate 2 mg sublingual Q4H PRN PRN 09/05/21 anxiety #30 mL scopolamine base 1 mg over 3 days 1 patch transdermal Q3D #4 ea 09/05/21 transdermal patch Previous Rx's Medication Instructions Recorded acetaminophen 500 mg tablet 1,000 mg PO TID #90 tabs 08/07/21 naloxone 4 mg/actuation nasal 4 mg intranasal Q2M #2 ea 08/18/21 spray (Narcan) hydromorphone (PF) 10 mg/mL See Rx Instructions subcut Q1H PRN 09/05/21 injection solution pain #100 mL lorazepam 2 mg/mL oral concentrate 2 mg sublingual Q4H PRN PRN 09/05/21 anxiety #30 mL scopolamine base 1 mg over 3 days 1 patch transdermal Q3D #4 ea 09/05/21 transdermal patch Allergies Allergy/AdvReac Type Severity Reaction Status Date / Time gadoterate meglumine Allergy Mild Skin Rash Verified 08/23/21 12:41 [From [facility]] Penicillins Allergy Unverified 08/23/21 12:41 General Stated Complaint: Chest/Rib ARELY: 5 Review of Systems Constitutional Constitutional: Denies chills, Reports fatigue, Denies fever(s), Reports frequent falls, Denies headache(s), Reports lethargy, Reports malaise, Reports poor appetite and Reports weakness Eyes Eyes: Denies change in vision ENT Ears, Nose, Mouth, and Throat: Denies dizziness, Denies headache(s) and Denies neck pain Cardiovascular Cardiovascular: Denies chest pain, Denies syncope and Denies dyspnea Respiratory Respiratory: Reports pain on inspiration, Reports pain with cough and Denies dyspnea Gastrointestinal Gastrointestinal: Denies abdominal pain, Denies nausea and Denies vomiting Musculoskeletal Musculoskeletal: Reports as per HPI, Reports back pain and Denies neck pain Integumentary/Breasts Skin/Breast: Denies wounds Neurologic Neurologic: Denies confusion, Denies dizziness, Denies syncope, Reports frequent falls, Denies headache(s), Denies lack of coordination and Reports weakness Psychiatric Psychiatric: Denies confusion Endocrine Endocrine: Reports fatigue PFSH All Active Problems Hospice care patient (Acute) Fall (Acute) Skin lesion (Acute) Decreased appetite (Acute) Ocular lymphoma (Acute) Brain metastases (Acute) COPD with respiratory distress, acute (Acute) Dysphagia (Acute) Palliative care patient (Acute) DNR (do not resuscitate) (Acute) Multiple rib fractures (Acute) Medical History Acute respiratory failure with hypoxia and hypercapnia Aspiration pneumonia Ocular lymphoma Social History Smoking/Tobacco Use Status: Current every day Tobacco Type: cigarettes Smoking risk assessment performed?: Yes Alcohol Intake: never Drug use: Never Substance use type: does not use Do you feel safe at home: Yes Do you feel safe in your relationship?: Yes Exam Const General: cooperative, in distress moderate, frail appearing and ill appearing chronically Nutritional Appearance: malnourished and thin Orientation: alert, awake and oriented x3 HENMT Head: normocephalic, atraumatic, no Robretson's sign and no raccoon eyes Ears: hearing grossly normal bilaterally General nose exam: external nose normal Mouth: moist mucous membranes Neck Neck: full ROM and nontender Chest Chest: localized rib tenderness with anteroposterior compression right posterior-axillary line and tenderness rib right ; no sternal xxx Resp Effort & Inspection: normal respiratory effort, able to speak in complete sentences and no respiratory distress Auscultation: clear to auscultation bilaterally Cardio Rate: regular rate Rhythm: regular rhythm Heart Sounds: S1 normal GI Inspection: normal to inspection and no abdominal wall ecchymosis Palpation: soft, not firm, no guarding, not rigid and nontender Auscultation: normal bowel sounds Back/Spine/Pelvis Cervical Spine: normal cervical lordosis and cervical ROM normal Thoracic/Lumbar Spine: pain with thoraco-lumbar ROM, paraspinal tenderness, thoracic spinal tenderness and No lumbar spinal tenderness Pelvis: no pain with anterior-posterior compression and no pain with lateral compression Skin General skin exam: no rashes or lesions noted Neuro General: patient alert, patient awake, patient oriented x3, moves all extremities and no focal motor deficits Sensory Exam: no sensory deficits noted
[2021-09-03 11:12] VITALS: BP 131/61; PULSE 88; RESP 16; O2SAT 92
--- NOTE | 2021-09-03 11:15 | DI.CT_ITS ---
Exam(s) CT THORACIC SPINE RECONS CT CHEST WO EXAM: CT CHEST WO and CT THORACIC SPINE RECONS CLINICAL HISTORY: fall chest/back and rib pain. TECHNIQUE: Imaging protocol: Axial computed tomography images were obtained and coronal and sagittal reformatted images were created and reviewed. COMPARISON: CT CT CHEST PE ABD PELVIS W from 08/02/2021 CT 3D RECON ON RAD CT WORKSTATION from 09/03/2021 FINDINGS: Tracheobronchial tree: Patent where visualized. Pulmonary parenchyma: There has been some clearing of the infiltrate in the right middle lobe with th e new area of consolidation in the posterior lateral aspect of the right middle lobe. There has been significant improvement of the infiltrate in the right lower lobe. The infiltrate in the left lung base appears stable. There are stable pulmonary nodules/masses. There are marked emphysematous beaulieu ges in the lungs. Mediastinum and Jocelyn: No dominant adenopathy or fluid collection. The esophagus is unremarkable. Thyroid gland: Unremarkable. Pleura: No effusion or pneumothorax. Heart: The heart is not dilated. Coronary artery calcifications are present. No pericardial effusion . Aorta: The ascending thoracic aorta measures 4.3 cm in transverse diameter. Atherosclerosis is prese nt. Upper abdomen: There is cholelithiasis. The common duct measures 1.0 cm. Lymph nodes: Within normal limits. Soft tissues: Unremarkable. Bones:There are minimally displaced fractures of several ribs seen both posteriorly and laterally. T here is callus formation about these fracture suggesting a subacute time frame. CT thoracic spine recons: No acute fracture or subluxation is present. IMPRESSION: 1. Subacute fractures involving multiple right ribs. Callus formation has begun to developed about t he fracture sites. 2. No acute fracture or subluxation in the thoracic spine. 3. Improvement in the opacities in the lung bases since 08/02/2021. 4. Results of this exam have been verbally communicated with provider. RADIATION DOSE DELIVERED: Total DLP Total DLP DATA REPOSITORY: All CT scans at this facility are submitted to the National Radiology Data Registry (NRDR) Dose Index Registry (DIR) with the [employer] ([employer]). RADIATION OPTIMIZATION: All CT scans at this facility use at least one of these dose optimization te chniques: automated exposure control; mA and/or kV adjustment per patient size (includes targeted exa ms where dose is matched to clinical indication); or iterative reconstruction.
[2021-09-03] MEDS: fentaNYL 100 MCG/2 ML VIAL 50 MCG IM ×2 (13:12→14:02)
[2021-09-03] MEDS: Pantoprazole 20 MG TABCR PO (14:03)
[2021-09-03 14:24] VITALS: BP 127/70; PULSE 78; RESP 16; O2SAT 94
--- NOTE | 2021-09-03 14:38 | NUR.NOTE ---
Patient set up with a walker
== END 2021-09-03 14:46 | disposition home or self-care (01) ==
PROVIDERS: Emergency Provider Nurse Practitioner Family; PCP Nurse Practitioner Family
DX: S22.41XA Multiple fractures of ribs, right side, initial encounter for closed fracture (principal); M54.9 Dorsalgia, unspecified; W18.39XA Other fall on same level, initial encounter; Z91.81 History of falling
CPT/HCPCS: 71250; 96372; 99284; 99283; J3010

== ENCOUNTER 2021-09-09 04:02 | Outpatient (CLI) | payer MEDICARE, MEDICAID, SELFPAY | END 2021-09-09 04:03 | disposition home or self-care (01) | LOC: LBO 04:03 | PROVIDERS: PCP Nurse Practitioner Family; Visit Provider Internal Medicine Hematology & Oncology ==